=== PATIENT | female | born 1940 | race Caucasian/White ===

== ENCOUNTER 2016-06-26 19:47 | Inpatient (IN) | payer MEDICARE, OTHER, MEDICAID ==
[~2016-06-26] VITALS: Ht 167.6 cm; Wt 64.3 kg
[~2016-06-26 19:47] MED LIST: ALEN70TA30 PO; ATOR40TA68 PO; DULO60CA59 PO; GABA100C14 PO; HYDR-3498 PO; IBUP-1542 PO; LISI-313 PO; MIRT15TA5 PO; ONDA4TAB14 PO; PRED20TA PO; RANI150T5 PO; TIOT18CA INHALATION
[2016-06-26] MEDS ORDERED: ONDANSETRON 4 MG INJ IV STA (19:56)
[2016-06-26] MEDS ORDERED: morphine 4 MG/ML VIAL IV STA ×2 (19:56→22:06)
[2016-06-26] MEDS ORDERED: SOD CHLORIDE 0.9% 500 ML IV STA (19:56)
--- NOTE | 2016-06-26 20:31 | RADRPT ---
PROCEDURE: XR Chest. CLINICAL INDICATION: Patient experiencing Abdominal Pain. TECHNIQUE: Single frontal view of the chest was obtained. COMPARISON: 05/22/2016 FINDINGS: The cardiomediastinal silhouette is normal size. Pulmonary vasculature is within normal limits. Th ere is moderate aortic calcification. There is lung hyperinflation. No signs of pleural fluid or pneumothorax are seen. The osseous structures and soft tissues are unre markable. IMPRESSION: No evidence for active cardiopulmonary disease. Lung hyperinflation consistent with COPD. RPTAT: HBST .Luciano Ford MD, MD Date Time Electronically viewed and signed by .Luciano Ford MD, MD on 06/26/2016 20:31 .T/
[2016-06-26] MEDS ORDERED: LORA0.5T PO (20:49)
[2016-06-26] MEDS ORDERED: NAPR-688 PO (20:50)
[2016-06-26] MEDS ORDERED: GUAI100L25 PO (20:51)
[2016-06-26] MEDS ORDERED: ALBU2.5V3 NEB (20:52)
[2016-06-26] MEDS ORDERED: BUTA1CAP38 PO (20:54)
[2016-06-26] MEDS ORDERED: DOCU-103 PO (20:55)
[2016-06-26] MEDS ORDERED: HYDR-906 PO (20:56)
[2016-06-26] MEDS ORDERED: SYMB80120 INHALATION (20:57)
[2016-06-26] MEDS ORDERED: TIOT18CA INHALATION (20:57)
[2016-06-26] MEDS ORDERED: TEMA15CA PO (20:58)
[2016-06-26] MEDS ORDERED: ALBU18HF INHALATION (20:59)
[2016-06-26] MEDS ORDERED: TOPI50TA5 PO (20:59)
[2016-06-26] MEDS ORDERED: OXYB5TAB PO (21:03)
[2016-06-26] MEDS ORDERED: PRIM50TA38 PO (21:05)
[2016-06-26] MEDS ORDERED: PROP20TA4 PO (21:07)
[2016-06-26] MEDS ORDERED: BUDE0.256 HHN (21:08)
[2016-06-26] MEDS ORDERED: RANI150T5 PO (21:09)
[2016-06-26] MEDS ORDERED: GABA100C14 PO (21:10)
[2016-06-26] MEDS ORDERED: MIRT15TA5 PO (21:12)
[2016-06-26] MEDS ORDERED: LISI-313 PO (21:12)
[2016-06-26] MEDS ORDERED: ASPI-664 PO (21:13)
[2016-06-26] MEDS ORDERED: MULTI PO (21:13)
[2016-06-26] MEDS ORDERED: ATOR40TA68 PO (21:14)
[2016-06-26] MEDS ORDERED: CRAN450T7 PO (21:15)
[2016-06-26] MEDS ORDERED: DIVA250T12 PO (21:15)
[2016-06-26] MEDS ORDERED: DIVA500T15 PO (21:16)
[2016-06-26] MEDS ORDERED: CYAN250L PO (21:17)
[2016-06-26 22:00] LABS: BASOPHILS % 0.1 % (0.0-2.0); EOSINOPHILS % 0.3 % (0.0-7.0); HEMATOCRIT 48.9 % (37.0-47.0); HEMOGLOBIN 16.8 g/dl (12.0-16.0); LYMPHOCYTES # 1.6 10^3/ul (0.8-2.9); LYMPHOCYTES % 16.5 % (15.0-51.0); MEAN CORPUSCULAR HEMOGLOBIN 31.2 pg (29.0-33.0); MEAN CORPUSCULAR HGB CONC 34.4 g/dl (32.0-37.0); MEAN CORPUSCULAR VOLUME 90.7 fl (82.0-101.0); MEAN PLATELET VOLUME 9.3 fl (7.4-10.4); MONOCYTES % 10.8 % (0.0-11.0); NEUTROPHIL # 6.9 10^3/ul (1.6-7.5); NEUTROPHILS % 72.3 % (39.0-77.0); PLATELET COUNT 156 10^3/UL (140-440); RED BLOOD COUNT 5.39 10^6/ul (4.20-5.40); RED CELL DISTRIBUTION WIDTH 16.1 % (11.5-14.5); UNCORRECTED WBC 9.5 10^3/ul (4.8-10.8); WHITE BLOOD COUNT 9.5 10^3/ul (4.8-10.8)
[2016-06-26 22:01] LABS: INR 1.03; PROTIME 13.5 Sec (12.2-14.2); PT RATIO 1.1
[2016-06-26 22:02] LABS: CONDITION 1; LH ANALYZER COMMENTS 1; PARTIAL THROMBOPLASTIN TIME 33.2 Sec (25.0-35.0)
[2016-06-26 22:04] LABS: ALBUMIN 4.3 g/dl (3.3-4.9); POTASSIUM 3.4 mmol/L (3.5-5.1)
[2016-06-26] MEDS ORDERED: IOHEXOL 100 ML ONE (22:05)
[2016-06-26] MEDS ORDERED: SOD CHLORIDE 0.9% 100 ML ONE (22:05)
[2016-06-26] MEDS ORDERED: IOHEXOL 350MG/ML 50 ML BTL ONE (22:05)
[2016-06-26 22:07] LABS: ALBUMIN/GLOBULIN RATIO 1.19; BILIRUBIN,INDIRECT 0.3 mg/dl (0-1.1); BILIRUBIN,TOTAL 0.3 mg/dl (0.2-1.3); CALCIUM 10.2 mg/dl (8.4-10.2); CREATININE 0.71 mg/dl (0.44-1.00); TOTAL PROTEIN 7.9 g/dl (6.1-8.1)
--- NOTE | 2016-06-26 22:41 | ERA ---
ER Documentation Chief Complaint Date/Time DATE: 06/26/16 TIME: 22:33 Chief Complaint from [facility],mid and lower back pain s/p fall X2 days ago HPI 76-year-old female history of chronic back pain who presents the emergency room with mid and lower back pain status post fall. The patient had a fall 2 days ago. She was seen in the emergency department and had a negative CT of the cervical spine. However over the past several days she has noted worsening thoracolumbar back pain that is moderate to severe and worse with movement. She also notes significant hypertension but did not take her blood pressure medication this evening. She denies any chest pain or shortness of breath, no pleuritic pain. She denies any head trauma or loss of consciousness. ROS All systems reviewed and are negative except as per history of present illness. Medications Home Meds Reported Medications Cyanocobalamin* (Vitamin B-12* Key) 250 Mcg Lozenge, 250 MCG PO DAILY, LOZENGE 06/26/16 Divalproex Sodium* (Divalproex ER*) 500 Mg Tab.er.24h, 1000 MG PO QHS, #60 TAB.SA 06/26/16 Divalproex Sodium* (Divalproex ER*) 250 Mg Tab.er.24h, 250 MG PO QHS, #30 TAB.SA 06/26/16 Cranberry Fruit (CRANBERRY) 450 Mg Tablet, 450 MG PO DAILY, TAB 06/26/16 Atorvastatin* (Atorvastatin*) 40 Mg Tablet, 40 MG PO QHS, #30 TAB 06/26/16 Aspirin* (Aspirin* EC) 81 Mg Tablet.dr, 81 MG PO DAILY, TAB 06/26/16 Multivitamins* (Theragran*) 1 Tab Tab, 1 TAB PO DAILY, TAB 06/26/16 Mirtazapine* (Mirtazapine*) 15 Mg Tablet, 15 MG PO HS, TAB 06/26/16 Lisinopril* (Lisinopril*) 5 Mg Tablet, 5 MG PO BID, #30 TAB TAKE 2TAB QAM AND 1TAB QPM 06/26/16 Gabapentin* (Gabapentin*) 100 Mg Capsule, 200 MG PO QHS, #60 CAP 06/26/16 Ranitidine Hcl* (Ranitidine Hcl*) 150 Mg Tablet, 150 MG PO Q12, #60 TAB 06/26/16 Budesonide* (Pulmicort* (Neb)) 0.25 Mg/2 Ml Nebu, 0.25 MG HHN DIRECTED, EA 06/26/16 Propranolol Hcl* (Propranolol Hcl*) 20 Mg Tablet, 20 MG PO BID, TAB TAKE 1TAB QAM AND 2TAB QHS 06/26/16 Primidone* (Mysoline*) 50 Mg Tablet, 100 MG PO TID, TAB 06/26/16 Oxybutynin Chloride (Oxybutynin Chloride ER) 5 Mg Tab.er.24, 5 MG PO DAILY, TAB 06/26/16 Albuterol Sulfate* (Ventolin HFA*) 18 Gm Hfa.aer.ad, 2 PUFF INHALATION Q4H, #1 INHALER 06/26/16 Topiramate* (Topiramate*) 50 Mg Tablet, 100 MG PO QHS, TAB 06/26/16 Temazepam* (Temazepam*) 15 Mg Capsule, 15 MG PO HS Y for INSOMNIA, CAP 06/26/16 Budesonide-Formoterol Fumarate* (Symbicort*) 80-4.5 Inha, 2 PUFFS INHALATION BID , #1 EACH 06/26/16 Tiotropium [place]* (Spiriva*) 18 Mcg Cap.w.dev, 1 CAP INHALATION DAILY, #30 CAP 06/26/16 Hydrocodone/Acetaminophen ([place] 5-325 Tablet) 1 Each Tablet, 1 EACH PO BID, TAB 06/26/16 Docusate Sodium (Docusil) 100 Mg Capsule, 100 MG PO BID, #60 CAP 06/26/16 Uhpdybgurj-Illdtoajnikvb-Fjzfbcjx* (Fioricet*) 50-300-40 Mg Capsule, 1 CAP PO Q4H Y for MIGRAINES, CAP 06/26/16 Albuterol Sulfate* (Albuterol Sulfate* Neb) 0.083%-3 Ml Neb, 1.25 MG NEB Q4H, # 30 VIAL 06/26/16 Guaifenesin (Q-Tussin) 100 Mg/5 Ml Syrup, 100 MG PO TID Y for COUGH, ML 06/26/16 Naproxen* (Naproxen*) 500 Mg Tablet, 500 MG PO DAILY Y for PRN, TAB 06/26/16 Lorazepam* (Lorazepam*) 0.5 Mg Tablet, 0.5 MG PO BID Y for ANXIETY, TAB 06/26/16 Discontinued Reported Medications Tiotropium [place]* (Spiriva*) 18 Mcg Cap.w.dev, 1 CAP INHALATION DAILY, #30 CAP 02/12/16 Atorvastatin* (Atorvastatin*) 40 Mg Tablet, 40 MG PO QHS, #30 TAB 02/12/16 Alendronate Sodium* (Fosamax*) 70 Mg Tablet, 70 MG PO Q7D, #4 TAB 02/12/16 Ranitidine Hcl* (Ranitidine Hcl*) 150 Mg Tablet, 150 MG PO Q12, #60 TAB 02/12/16 Mirtazapine* (Mirtazapine*) 15 Mg Tablet, 15 MG PO HS, TAB 02/12/16 Lisinopril* (Lisinopril*) 5 Mg Tablet, 5 MG PO DAILY, #30 TAB 02/12/16 Duloxetine Hcl* (Duloxetine Hcl*) 60 Mg Capsule.dr, 60 MG PO DAILY, #30 CAP 02/12/16 Gabapentin* (Gabapentin*) 100 Mg Capsule, 100 MG PO BID, #90 CAP 02/12/16 Hydrocodone Bit-Acetaminophen* ([place]*) 5-325 Mg Tab, 1 TAB PO Q6H Y for PAIN LEVEL 6-10, TAB 02/12/16 Discontinued Scripts Ondansetron (Ondansetron Odt) 4 Mg Tab.rapdis, 4 MG PO Q6H Y for NAUSEA AND/OR VOMITING, #10 TAB Prov:YNES NICHOLSON DO 06/25/16 Ibuprofen* (Motrin*) 600 Mg Tab, 600 MG PO Q8, #30 TAB Prov:YNES NICHOLSON DO 06/25/16 Prednisone* (Prednisone*) 20 Mg Tab, 40 MG PO DAILY for 4 Days, TAB Prov:YADIRA BENNETT 05/22/16 Allergies Allergies: Coded Allergies: Penicillins (Verified Allergy, Unknown, 06/26/16) chicken derived (Verified Allergy, Unknown, 06/26/16) lamotrigine (Verified Allergy, Unknown, 06/26/16) propoxyphene (Verified Allergy, Unknown, 06/26/16) valsartan (Verified Allergy, Unknown, 06/26/16) PMhx/Soc History of Surgery: Yes (hysterectomy, bilat hip replacement) Anesthesia Reaction: No Hx Neurological Disorder: No Hx Respiratory Disorders: Yes (COPD) Hx Cardiac Disorders: Yes (HTN) Hx Psychiatric Problems: No Hx Miscellaneous Medical Probl: No Hx Alcohol Use: No Hx Substance Use: No Hx Tobacco Use: No FmHx Family History: No diabetes Physical Exam Vitals Vital Signs Date Time Temp Pulse Resp B/P Pulse Ox O2 Delivery O2 Flow Rate FiO2 06/26/16 19:55 98.2 94 18 176/104 95 Physical Exam General: Well developed, well nourished, slightly uncomfortable but no significant distress Head: Normocephalic, atraumatic. Eyes: Pupils equally reactive, EOM intact ENT: Moist mucous membranes Neck: Supple, no lymphadenopathy, No midline tenderness, deformities, step-offs to the cervical spine, full active and passive range of motion without midline pain. Respiratory: Lungs clear bilaterally, no distress Cardiovascular: RRR, no murmurs, rubs, or gallops Abdominal: Soft, non-tender, non-distended, no peritoneal signs, no pulsatile mass : Deferred MSK: Mild diffuse soft tissue tenderness to the midline and paraspinal soft tissues of the thoracolumbar spine. No bony abnormalities to the extremities. Neurologic: Alert and oriented, moving all extremities, normal speech, no focal weakness, no cerebellar signs Skin: No rash Psych: Normal mood Result Diagram: 06/26/16214406/26/162144 Results 24 hrs Laboratory Tests Test 06/26/16 21:45 Activated Partial Thromboplast Time 33.2Sec Alanine Aminotransferase (ALT/SGPT) 30IU/L Albumin 4.3g/dl Albumin/Globulin Ratio 1.19 Alkaline Phosphatase 78IU/L Anion Gap 17 Aspartate Amino Transf (AST/SGOT) 25IU/L Basophils # 0.010^3/ul Basophils % 0.1% Blood Morphology Comment Blood Urea Nitrogen 13mg/dl Calcium Level 10.2mg/dl Carbon Dioxide Level 28mmol/L Chloride Level 94mmol/L Creatinine 0.71mg/dl Direct Bilirubin 0.00mg/dl Eosinophils # 0.010^3/ul Eosinophils % 0.3% Globulin 3.60g/dl Glucose Level 117mg/dl Hematocrit 48.9% Hemoglobin 16.8g/dl INR International Normalized Ratio 1.03 Indirect Bilirubin 0.3mg/dl Lipase 20U/L Lymphocytes # 1.610^3/ul Lymphocytes % 16.5% Mean Corpuscular Hemoglobin 31.2pg Mean Corpuscular Hemoglobin Concent 34.4g/dl Mean Corpuscular Volume 90.7fl Mean Platelet Volume 9.3fl Monocytes # 1.010^3/ul Monocytes % 10.8% Neutrophils # 6.910^3/ul Neutrophils % 72.3% Nucleated Red Blood Cells # 0.010^3/ul Nucleated Red Blood Cells % 0.0/100WBC Platelet Count 77536^3/UL Potassium Level 3.4mmol/L Prothrombin Time 13.5Sec Prothrombin Time Ratio 1.1 Red Blood Count 5.3910^6/ul Red Cell Distribution Width 16.1% Sodium Level 136mmol/L Total Bilirubin 0.3mg/dl Total Protein 7.9g/dl White Blood Count 9.510^3/ul Current Medications Medications (Trade) Dose Ordered Sig/Telma Route PRN Reason Start Time Stop Time Status Last Admin Dose Admin Sodium Chloride (NS) 500 ml @ 500 mls/hr Q1H STAT IV 06/26/16 19:56 06/26/16 20:55 DC 06/26/16 22:21 Morphine Sulfate (morphine) 4 mg ONCE STAT IV 06/26/16 19:56 06/26/16 19:59 DC 06/26/16 20:46 Ondansetron HCl (Zofran Inj) 4 mg ONCE STAT IV 06/26/16 19:56 06/26/16 19:59 DC 06/26/16 22:21 IV Flush 10 ml 10 ml STK-MED ONCE .ROUTE 06/26/16 22:05 06/26/16 22:06 DC 06/26/16 23:05 Sodium Chloride 100 ml @ ud STK-MED ONCE .ROUTE 06/26/16 22:05 06/26/16 22:06 DC 06/26/16 23:05 Iohexol (Omnipaque) 100 ml @ ud STK-MED ONCE .ROUTE 06/26/16 22:05 06/26/16 22:06 DC 06/26/16 23:05 Iohexol (Omnipaque 350mg/ ml) 50 ml STK-MED ONCE .ROUTE 06/26/16 22:05 06/26/16 22:06 DC 06/26/16 23:05 Morphine Sulfate (morphine) 4 mg ONCE STAT IV 06/26/16 22:06 06/26/16 22:07 DC 06/26/16 22:20 Procedures/MDM EKG, MONITORS, & DIAGNOSTIC IMAGING: EKG: I reviewed and interpreted a 12-lead EKG. Rhythm: Normal sinus rhythm Ectopy: None Intervals: No abnormalities ST segments: No elevations or depressions T waves: No contiguous inversions Chest x-ray: I reviewed and interpreted a 1 view of the chest Mediastinum: No enlargement Cardiac silhouette: No cardiomegaly Airspace: Clear lung macedo bilaterally without evidence of pneumothorax Bones: No evidence of fracture CT thoracolumbar spine: PENDING CTA abdomen and pelvis: PENDING CT brain: PENDING PROCEDURES: Peripheral IV Insertion: Indication: Difficult IV access Location: Right deep brachial Attempts: 3 Angiocath-type: 18-gauge long The patient was consented prior to procedure and states understanding of risks, benefits, alternatives. Verbal consent was provided Sterile procedure was used to insert a peripheral IV. Indication, location and Angiocath-type are noted above. Ultrasound guidance was used to assist in the insertion of the Angiocath. Return of dark nonpulsatile blood was obtained, normal saline flushed through the Angiocath which was then secured to the skin. The patient tolerated the procedure well without complications. Emergency Bedside Ultrasound: The patient was verbally consented prior to procedure and understands the risks , benefits, and alternatives. The patient is agreeable to procedure and has given verbal consent. Indication: Peripheral IV insertion Probe Type: Linear Findings: Dynamic ultrasound utilized with compression technique with both linear and horizontal views. LAB INTERPRETATION: No significant leukocytosis MEDICAL DECISION MAKING: The patient presents with back pain that is most likely related to a fall. However, the patient does have significant hypertension, reported to be in the 200s in the 170s. The patient did miss her blood pressure medication this evening and does have some pain which could play a role in her elevated blood pressure. However, the patient is elderly with elevated blood pressure and back pain which raises the concern for possible vascular emergency. CT imaging of the thoracolumbar spine as well as CTA is appropriate. The patient also has a very transient episode with the paramedics while waiting for a bed. The paramedics state that they were having a conversation with her and she suddenly stopped talking and became confused, this lasted approximately 30 seconds with spontaneous resolution. The patient is now appropriate and conversive. The patient does not recall this event. Unclear etiology. CT imaging of the brain would be appropriate. Telemetry monitoring for possible arrhythmias also appropriate. The patient will benefit from inpatient hospitalization to evaluate for possible TIA, consider absence seizure versus sundowning. ER COURSE: The patient continues to be well-appearing in the emergency room. CTs pending at time of signout. patient endorsed to Dr Bennett for results and inpatient hospitalization I kept the patient and/or family informed of laboratory and diagnostic imaging results throughout the emergency room course. DISPOSITION PLAN: Telemetry admission for altered mental status, back pain CONSULTATION: Accepting care team and consultations: I discussed the current laboratory data, diagnostic imaging and emergency care provided. Admitting team: PENDING Admitting team indication: Insurance directed Departure Diagnosis: Primary Impression: Thoracolumbar back pain Additional Impressions: Hypertensive urgency Altered mental status Qualified Code: R41.82 - Altered mental status, unspecified altered mental status type Condition: Stable BETZAIDA DE LA GARZA MD Jun 26, 2016 22:41
--- NOTE | 2016-06-26 23:32 | RADRPT ---
PROCEDURE: CT BRAIN WITHOUT CONTRAST CLINICAL INDICATION: 76-year-old female with altered mental status. TECHNIQUE: The study was performed utilizing [employer] VCT 64-slice CT scanner. Direct axial sections were obtained from the foramen magnum to the vertex without the use of intravenous contrast material. Sagittal and coronal reformations were obtained. The images were viewed on a PACS workst ation. CTD/vol = 45.0 mGy; Total Exam DLP = 720.2 mGy-cm. COMPARISON: CT brain May 22, 2016. FINDINGS: There is whue-sp-sbhpqahu degree of diffuse cortical and central atrophy with compensatory ventricul ar enlargement. There is marked prominence of the cerebellar folia bilaterally suggestive of moderat e-to-severe cerebellar atrophy similar appearance to the patient's prior study.. There is no evidenc e for mass effect or midline shift. There are periventricular and deep white matter areas of decrea sed density consistent with microangiopathic ischemic changes. There is encephalomalacia identified within the left occipital and mesial posterior temporal lobe consistent with a prior left posterior cerebral artery distribution infarct as previously visualized and without significant interval webb e. There is no evidence for acute intra or extra-axial blood. Calcifications are seen within the intracranial carotid arteries bilaterally. The bony calvarium is intact. There is minimal mucosal th ickening within the ethmoid air cells bilaterally. No air-fluid levels are noted. The mastoid air cells are without significant soft tissue. IMPRESSION: 1. The intracranial contents are without significant interval change compared to the patient's prio r study from May 22, 2016. 2. Qnuz-wz-rufiyjup diffuse supratentorial atrophy and with more severe cerebellar atrophy. 3. Microangiopathic ischemic changes. 4. 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 5. Vascular calcifications. 6. Minimal mucosal thickening ethmoid air cells. .Yimi Guadarrama MD, MD Date Time Electronically viewed and signed by .Yimi Guadarrama MD, MD on 06/26/2016 23:31 .M/
--- NOTE | 2016-06-27 00:01 | RADRPT ---
PROCEDURE: CT LUMBAR SPINE WITHOUT CONTRAST CLINICAL INDICATION: 76-year-old female with back pain following trauma. TECHNIQUE: The study was performed utilizing a GE [employer] VCT CT scanner. Direct axial section s were obtained through the lumbar spine. Coronal and sagittal re-formations were obtained. The im ages were viewed on a PACS workstation. CTD/vol = 12.3 mGy; Total Exam DLP = 319.4 mGy-cm. COMPARISON: CT thoracic spine obtained concurrently. FINDINGS: There is an old severe compression fracture of the L1 vertebral body with a sclerotic appearance and vertebra plana appearance with approximately 90% loss of height centrally. There is retropulsion o f the posterosuperior body approximately 7 mm. This is narrowing the anteroposterior dimension of t he spinal canal to approximately 8 mm. At L1-2 there is mild diffuse disk bulge resulting in mild bilateral articular recess stenosis. Ther e is minimal central spinal stenosis. There is a compression fracture of the L2 vertebral body with approximately 50% loss of height. The re is evidence for prior kyphoplasty with dense methylmethacrylate visualized. At L2-3 there is mild diffuse disk bulge. There is mild bilateral facet arthropathy. This is resul ting in rins-jz-nrfvmwpy bilateral subarticular recess stenosis. There is lghu-si-jsthbmkw central spinal stenosis. There is an old compression fracture the superior L3 vertebral body with approximately 20% loss of h eight. At L3-4 the disk space has a normal height. There is minimal diffuse disk bulge. There is mild luis a ateral facet arthropathy. There is hypertrophy of the ligamentum flavum. This is resulting in mild bilateral subarticular recess stenosis and ukxw-hl-hzlwujgc central spinal stenosis. At L4-5 there is a vacuum disk present with marked disk space narrowing. There is anterolisthesis o f approximately 25%. There is marked bilateral facet arthropathy. There is diffuse disk bulge. The re is hypertrophy of the ligamentum flavum. This is resulting in sptljpeo-zu-uewlqd bilateral forami nal stenosis and zfiszcxz-nj-xxwjef central spinal stenosis. At L5-S1 there is a vacuum disk present. There is moderate disk space narrowing. There is diffuse disk bulge and mild bilateral facet arthropathy. This is resulting in moderate bilateral foraminal stenosis. There is no significant central spinal stenosis. Mild degenerative changes are seen within the sacroiliac joints. Marked diffuse osteopenia is identified. IMPRESSION: 1. Old severe L1 compression fracture (90%) with posterosuperior retropulsion resulting in moderate central spinal stenosis. 2. Old compression fracture L2 vertebral body (50%) with prior kyphoplasty. 3. Old superior L3 compression fracture (20%). 4. Multilevel discogenic and degenerative changes most severe at L4-5. 5. At L3-4 there is minimal diffuse disk bulge, mild facet arthropathy hypertrophy of the ligamentu m flavum resulting in mild bilateral subarticular recess stenosis and pbas-os-eoryzrkq central spina l stenosis. 6. At L4-5 there is degenerative spondylolisthesis (25%), discogenic disease, facet arthropathy hyp ertrophy of the ligamentum flavum resulting in zknixrxn-pk-reqfwx bilateral foraminal stenosis and m rrbfeng-gw-dmkqkb central spinal stenosis. 7. At L5-S1 there is a vacuum disk with discogenic disease and facet arthropathy resulting in moder ate bilateral foraminal stenosis. 8. Marked diffuse osteopenia. .Yimi Guadarrama MD, Date Time Electronically viewed and signed by .Yimi Guadarrama MD, on 06/27/2016 00:00 .M/
--- NOTE | 2016-06-27 00:11 | RADRPT ---
PROCEDURE: CTA ABDOMEN/PELVIS CLINICAL INDICATION: 76-year-old female with severe back pain and hypertension. TECHNIQUE: The study was performed utilizing a GE [employer] VCT 64-slice CT scanner. Direct axia l sections were obtained through the abdomen and pelvis with the use of 115 cc of Omnipaque 350 lucia onic intravenous contrast material. Sagittal and coronal reformations were obtained. Maximal intensi ty projection and surface shaded display reformations were obtained. The images were reviewed on a PACS workstation. CTD/vol = 28.5 mGy; Total Exam DLP = 614.2 mGy-cm. COMPARISON: CT thoracic and lumbar spine obtained concurrently. FINDINGS: Cardiomegaly is noted. There is minimal bibasilar subsegmental atelectasis. There is no evidence fo r significant pleural effusion. The liver has a normal size and contour without focal areas of abno rmal density or contrast enhancement. No intrahepatic nor extrahepatic biliary ductal dilatation is seen. The gallbladder is distended but without evidence for calcified stones, significant wall thick ening or pericholecystic fluid.. The pancreas is without areas of abnormal attenuation or contrast e nhancement. This spleen is identified and has a normal size without abnormal density or contrast en hancement. The adrenal glands are unremarkable. The kidneys are functional bilaterally. There is a c yst identified within the lower pole of the left kidney measuring approximately 1.3 x 1.3 x 1.3 cm. No hydroureteronephrosis nor nephroureterolithiasis is evident. The urinary bladder is distended wit h urine. There is moderate retained stool within the ascending and transverse colon without gross bowel obstruction. The periappendiceal region is without inflammatory changes. There is no signifi cant pelvic free fluid. There is no significant free fluid. Degenerative changes are seen throughout the spine with multiple compression fractures better evaluated on the CT of the lumbar spine obtain ed concurrently. Bilateral hip arthroplasties are present. There are old healed fracture deformitie s involving the right superior/inferior pubic rami with exuberant callus formation. Marked diffuse osteopenia is present. There is diffuse ectatic calcific atherosclerotic disease throughout the aortoiliac vessels with mil d focal mid aortic infrarenal aneurysmal dilatation extending for a length of approximately 3.0 cm w ith maximal transverse dimension of approximately 2.8 x 3.0 cm. There is no evidence for dissection. The celiac, superior mesenteric and inferior mesenteric arteries are patent. The renal arteries ar e patent bilaterally with mild stenosis involving the proximal right renal artery. IMPRESSION: 1. Cardiomegaly. 2. Minimal bibasilar subsegmental atelectasis. 3. Left lower pole renal cyst. 4. Moderate retained stool within the proximal colon without gross bowel obstruction. 5. Degenerative changes throughout the spine with multiple compression fractures better evaluated o n a CT of the lumbar spine which was obtained concurrently. Please see the dictation. 6. Bilateral hip arthroplasties. 7. Old right superior/inferior pubic rami fracture deformities. 8. Marked diffuse osteopenia. 9. 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 .Yimi Guadarrama MD, Date Time Electronically viewed and signed by .Yimi Guadarrama MD, on 06/27/2016 00:10 .M/
--- NOTE | 2016-06-27 00:16 | RADRPT ---
PROCEDURE: CT THORACIC SPINE WITHOUT CONTRAST CLINICAL INDICATION: 76-year-old female with trauma and back pain. TECHNIQUE: The study was performed utilizing a GE SuperbT 64-slice CT scanner. Direct axia l sections were obtained through the lumbar spine. Coronal and sagittal re-formations were obtained . The images were viewed on a PACS workstation. CTD/vol = 16.1 mGy; Total Exam DLP = 556.6 mGy-cm. COMPARISON: CT cervical spine June 25, 2016. FINDINGS: There has been interval development of a compression fracture of the superior T1 vertebral body with approximately 30% loss of height. There is no significant retropulsion. At T1-2 there is anterolisthesis of approximately 15%. There is no significant central or foraminal stenosis. This is without significant interval change. There is an old sclerotic severe compression fracture of the T2 vertebral body with approximately 80 % loss of height centrally. There is mild posteroinferior retropulsion of approximately 3 mm. There is an old compression fracture of the superior T7 vertebral body with approximately 40% loss o f height without significant retropulsion. There is a severe compression fracture of the T10 vertebral body with approximately 80% loss of heig ht which has a sclerotic appearance however there is a cleavage plane most likely representing an ac joan on chronic process. There is marked right posteroinferior retropulsion of approximately 7 mm. This is resulting in narrowing of the anteroposterior dimension of the spinal canal to approximately 7 mm. At T10-11 there is srso-ln-qstxtrli bilateral foraminal stenosis. There is a mild compression fracture of the superior T12 vertebral body with approximately 15% loss of height which does not appear to be acute. There is no significant retropulsion. There is an old severe compression fracture of the L1 vertebral body with a sclerotic appearance and vertebra plana appearance with approximately 90% loss of height centrally. There is retropulsion o f the posterosuperior body approximately 7 mm. This is narrowing the anteroposterior dimension of t he spinal canal to approximately 8 mm. IMPRESSION: 1. Interval development of acute superior T1 compression fracture with approximately 30% loss of he ight without significant retropulsion. 2. Old sclerotic severe compression fracture T2 vertebral body (80%). 3. Old superior T7 vertebral body compression fracture (40%). 4. Severe T10 compression fracture (80%) with a sclerotic appearance consistent with a prior fractu re however there is a cleavage plane present and therefore representing acute on chronic process. N oted is marked right posteroinferior retropulsion of 7 mm causing moderate spinal stenosis with narr owing of the canal to approximately 7 mm. 5. Probable old superior T12 vertebral body compression fracture (50%). 6. Old severe L1 compression fracture (90%) with posterosuperior retropulsion resulting in moderate central spinal stenosis. .Yimi Guadarrama MD, MD Date Time Electronically viewed and signed by .Yimi Guadarrama MD, MD on 06/27/2016 00:15 .M/
[2016-06-27] MEDS ORDERED: morphine 4 MG/ML VIAL IV STA (04:53)
[2016-06-27] MEDS: HYDROmorphONE 1 MG/ML SYG IV STA ×2 (08:18→11:37)
[2016-06-27] MEDS ORDERED: ONDANSETRON 4 MG INJ IV STA (08:47)
[2016-06-27 09:48] LABS: CK-MB 2.41 ng/ml (0.0-2.4)
[2016-06-27 09:55] LABS: TROPONIN-I 0.145 ng/ml (0.00-0.12)
[2016-06-27] MEDS ORDERED: SOD CHLORIDE 0.9% 1,000 ML IV STA (10:10)
[2016-06-27] MEDS ORDERED: SOD CHLORIDE 0.9% 500 ML IV STA (15:15)
[2016-06-27 17:27] VITALS: TEMP 98
[2016-06-27 18:00] VITALS: PULSE 90
[2016-06-27 18:08] VITALS: BP 171/82; PULSE 87; RESP 16
[2016-06-27 18:09] VITALS: Ht 167.6 cm; Wt 64.3 kg
[2016-06-27] MEDS ORDERED: DOCUSATE SODIUM 100 MG CAP PO PRN (18:30)
[2016-06-27] MEDS ORDERED: ACETAMINOPHEN 325 MG TAB PO PRN (18:30)
[2016-06-27] MEDS ORDERED: NACL 0.9% 3 ML SYG IV SCH (18:30)
[2016-06-27] MEDS ORDERED: NITROGLYCERIN (SL) 0.4 MG TAB SL PRN (18:30)
[2016-06-27] MEDS ORDERED: GUAIFENESIN 20 MG/ML 5ML CUP PO PRN (18:30)
[2016-06-27] MEDS ORDERED: LORAZEPAM 2 MG INJ IV PRN (18:30)
[2016-06-27] MEDS: ALBUTEROL 0.083% (NEB) 2.5 MG/3 ML AMP NEB SCH ×2 (18:30→20:33)
[2016-06-27] MEDS ORDERED: ONDANSETRON 4 MG INJ IV PRN (18:30)
[2016-06-27] MEDS: morphine 2 MG INJ IV PRN (19:04)
[2016-06-27] MEDS ORDERED: HEPARIN 25000 UNITS/250 ML 250 ML IV SCH (19:30)
[2016-06-27] MEDS ORDERED: HEPARIN 1000 UNITS/ML 10 ML INJ IV PRN (19:30)
[2016-06-27] MEDS ORDERED: HEPARIN 1000 UNITS/ML 10 ML INJ IV ONE (19:30)
[2016-06-27 19:42] LABS: BASOPHILS % 0.5 % (0.0-2.0); EOSINOPHILS # 0.1 10^3/ul (0.0-0.5); EOSINOPHILS % 1.6 % (0.0-7.0); HEMOGLOBIN 15.1 g/dl (12.0-16.0); LYMPHOCYTES % 10.9 % (15.0-51.0); MEAN CORPUSCULAR HEMOGLOBIN 30.5 pg (29.0-33.0); MEAN CORPUSCULAR HGB CONC 32.8 g/dl (32.0-37.0); MEAN CORPUSCULAR VOLUME 93.1 fl (82.0-101.0); MEAN PLATELET VOLUME 9.2 fl (7.4-10.4); MONOCYTE # 1.3 10^3/ul (0.3-0.9); MONOCYTES % 13.4 % (0.0-11.0); NEUTROPHILS % 73.6 % (39.0-77.0); PLATELET COUNT 159 10^3/UL (140-440); RED BLOOD COUNT 4.94 10^6/ul (4.20-5.40); RED CELL DISTRIBUTION WIDTH 16.7 % (11.5-14.5); UNCORRECTED WBC 9.5 10^3/ul (4.8-10.8); WHITE BLOOD COUNT 9.5 10^3/ul (4.8-10.8)
[2016-06-27 19:48] LABS: CONDITION 1; LH ANALYZER COMMENTS 1
[2016-06-27 19:50] LABS: CHOL/HDL RATIO 3.4 RATIO; MAGNESIUM 1.6 mg/dl (1.7-2.5)
[2016-06-27 19:53] VITALS: BP 123/69; RESP 18
[2016-06-27] MEDS ORDERED: POTASSIUM CHLORIDE (SR) 20 MEQ TAB PO STA (19:54)
[2016-06-27 20:00] LABS: CK-MB 4.19 ng/ml (0.0-2.4)
[2016-06-27] MEDS ORDERED: LIDOCAINE 1% (MDV) 20 ML INJ SC ONE (20:00)
[2016-06-27 20:03] LABS: TROPONIN-I 0.086 ng/ml (0.00-0.12)
[2016-06-27 20:10] VITALS: PULSE 95
[2016-06-27 20:21] LABS: THYROID STIMULATING HORMONE 3.53 MIU/L (0.465-4.680)
[2016-06-27 20:47] LABS: INR 0.98; PARTIAL THROMBOPLASTIN TIME 30.9 Sec (25.0-35.0)
[2016-06-27] MEDS ORDERED: MAGNESIUM SULFATE 2 GM/50 ML 50 ML IVPB ONE (21:30)
[2016-06-27] MEDS ORDERED: morphine 2 MG INJ IV ONE (22:00)
[2016-06-27] MEDS ORDERED: HEPARIN 5,000 UNIT/0.5 ML SYG SC SCH (22:00)
[2016-06-27] MEDS: ATORVASTATIN 40 MG TAB PO SCH (22:10)
[2016-06-27] MEDS: ASPIRIN (EC) 81 MG TAB PO SCH (22:11)
[2016-06-27] MEDS: PRIMIDONE 50 MG TAB PO SCH (22:11)
[2016-06-27] MEDS: RANITIDINE 150 MG TAB PO SCH (22:11)
[2016-06-27] MEDS: MIRTAZAPINE 15 MG TAB PO SCH (22:11)
[2016-06-27] MEDS: DIVALPROEX (ER) 500 MG TAB PO SCH (22:11)
[2016-06-27] MEDS: DIVALPROEX (ER) 250 MG TAB PO SCH (22:12)
[2016-06-27] MEDS: GABAPENTIN 100 MG CAP PO SCH (22:12)
[2016-06-27] MEDS: TOPIRAMATE 100 MG TAB PO SCH (22:13)
[2016-06-27] MEDS: PROPRANOLOL 20 MG TAB PO SCH (22:24)
[2016-06-27] MEDS: ENOXAPARIN 40 MG/0.4 ML SYG SC SCH (22:47)
[2016-06-27] MEDS: SALMETEROL/FLUTICASONE 100/50 INHA INH SCH (23:30)
[2016-06-27] MEDS: LISINOPRIL 5 MG TAB PO SCH (23:30)
[2016-06-28] VITALS (12 sets, daily range): BP systolic 114–142; BP diastolic 59–78; PULSE 62–83; RESP 18–19
[2016-06-28] MEDS: FAMOTIDINE 20 MG INJ IV SCH ×2 (01:01→09:20)
[2016-06-28] MEDS: ALBUTEROL 0.083% (NEB) 2.5 MG/3 ML AMP NEB SCH ×4 (01:20→16:00)
[2016-06-28 01:50] LABS: CK-MB 3.49 ng/ml (0.0-2.4)
[2016-06-28 01:53] LABS: TROPONIN-I 0.091 ng/ml (0.00-0.12)
--- NOTE | 2016-06-28 06:25 | HP ---
DATE OF ADMISSION: 06/27/2016 PRESENTING COMPLAINT: Back pain. HISTORY OF PRESENT ILLNESS: Please note, that the patient was initially seen in the emergency room on 06/26/2016 at about 9:30 p.m.; however, I didn't find out about this patient until today, 016 at about 7:15 p.m. There is some question about the patient being endorsed to me for admission yesterday; however, I received no such endorsement, and was just notified about the patient's presen ce in the hospital by my partner, Dr. Marley, this evening. Apparently, this is a 76-year-old fema kathleen who resides at [facility], who slipped and fell in the shower 2 days ago, 06/25/2016. She was brought to the emergency room here, and evaluated by our emergency room physicians, and at that time they had determined that she had just obtained a back contusion, and she has an age-indete rminate T2 compression fracture, with 75% loss of anterior vertebral body height with no retropulsio n, and she was sent back to the [facility] with good pain management regimen. However, the patien t reports that she still did not feel well, and she continued to have generalized pain, so she was s ent back to the ER yesterday. In the ER, she was fully assessed and had multiple imaging studies to include a thoracic spine CT scan that now shows interval development of an acute T1 compression fra cture, old T2, T7, T10, and T12, as well as L1 compression fractures that are in varying degrees of severity, but more importantly, she was found to have elevated troponins, and she is being admitted for further intervention and care. At this time, the patient is very anxious and tearful, telling m e she hurts all over. She tells me she is able to walk usually with a walker, but she has had multi ple falls. She denies chest pain though, denies shortness of breath, denies abdominal pain, denies blood in stool or in urine. PAST MEDICAL HISTORY: Positive for: 1. Multiple falls. 2. Chronic osteoarthritis. 3. Previous spinal fractures. 4. Chronic obstructive pulmonary disease. 5. Previous stroke, with left-sided weakness. 6. High blood pressure. 7. Depression. 8. Seizures. 9. Dyslipidemia. PAST SURGICAL HISTORY: Includes: 1. Hysterectomy. 2. Bilateral hip replacement. ALLERGIES: SHE HAS ALLERGY TO PENICILLIN, CHICKEN, , LAMOTRIGINE, PROPOXYPHENE, AND VALSARTAN. HOME MEDICATIONS: These were reviewed and reconciled. Please review nursing notes for details. Of note, regarding her medications, the patient is on multiple, multiple medications that include medi cations that could make her a fall risk, including Fioricet as needed for headaches, primidone, topi ramate, mirtazapine, gabapentin, and temazepam. FAMILY HISTORY: Noncontributory. SOCIAL HISTORY: Patient denies tobacco, alcohol, or illicit drug use. 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 PHYSICAL EXAMINATION: VITAL SIGNS: Temperature 98.4, pulse 97, respirations 18, blood pressure 123/69, saturations 94% on oxygen via nasal cannula at 1 liter/minute. GENERAL: The patient is somewhat obese, very anxious, but she is alert and oriented, able to answer questions appropriately. HEENT: Head is normocephalic. There is no evidence of trauma. Equal and reactive pupils. Her muc ous membranes were quite dry. NECK: Supple and nontender. BACK: Evaluation of her back does reveal multiple bruises and contusions at different levels of her spine. CHEST: Clear to auscultation with reduced air entry in the bases, as well as shallow breath sounds. CARDIOVASCULAR: S1 and S2, without added sounds or murmurs, regular rhythm. ABDOMEN: Obese, soft, nontender, with normoactive bowel sounds. EXTREMITIES: With trace nonpitting edema of both feet. NEUROLOGIC: The patient is able to move all 4 extremities without deficits. PSYCHIATRIC: She was anxious. LABORATORY VALUES: Her CBC was normal. Her chemistry was concerning for hypokalemia of 3.4, hypoma gnesemia of 1.6, an elevated troponin as mentioned earlier of 0.468, but on the second draw it impro gita to 0.145. Her total cholesterol was still mildly elevated at 206. Her LFTs were normal, howeve r, as was her coag profile. IMAGING STUDIES: The patient had multiple imaging studies, and they are summarized as below: 1. CT scan of brain showed rqdi-dg-[id number] diffuse supratentorial atrophy with more severe cerebel lar atrophy. It also showed an old posterior cerebral artery distribution infarct, as well as vascu lar calcifications, and minimal mucosal thickening of ethmoid air cells. 2. She had abdominal angiography of the abdomen and pelvis with IV contrast. It showed the followin g: Cardiomegaly, bibasilar subsegmental atelectasis, constipation without bowel obstruction, degene rative changes throughout the spine, with multiple compression fractures; better evaluated on CT of the spine, bilateral hip arthroplasties, old right superior/inferior fracture deformities, dif fuse osteopenia, and atherosclerotic disease, with a mild focal medial abdominal aortic aneurysmal d ilatation with a maximal dimension of 3.0, without evidence of dissection. 3. She also had a chest x-ray done 06/26/2016, and it showed no active cardiopulmonary disease and has lung hyperinflation consistent with chronic COPD. 4. CT of the lumber spine had the multiple factors summarized in the HPI. 5. CT of the thoracic spine, as well, had multiple fractures. 6. CT of the cervical spine did show severe left neural foraminal narrowing at C6 through C7. 7. Her EKG when she first came into the emergency room was reviewed, and there were no concerns for , based on my assessment. ASSESSMENT: A 76-year-old unfortunate female with history of multiple falls and severe diffuse oste openia with the followin. Acute non-ST elevation myocardial infarction with atypical symptoms, as the patient denies chest pain or shortness of breath. 2. Multiple falls causing #3. 3. Multiple fractures with varying ages and severity, as well as compression height, in the lumbar and thoracic spine. 4. Severe osteoarthritis and diffuse osteopenia contributing to #3. 5. Chronic obstructive pulmonary disease without exacerbation. 6. Chronic seizures. 7. Dyslipidemia. 8. Chronic depression. 9. Hypokalemia. 10. Hypomagnesemia. 11. Dyslipidemia. 12. Small 3 cm mild midabdominal aortic aneurysm that was incidentally found on CT. 13. Constipation. DISPOSITION: The patient was admitted to telemetry floor for cardiac optimization and will need car diology consultation. She has been started on a heparin drip in the interim. However, the patient is a very hard stick, and as such, I have discussed the need for PICC line with the patient, and she has consented to the procedure. Will be obtaining a cardiology consultation with Dr. Dominick Valiente i, and to follow his recommendations with regard to how to proceed regarding her cardiac status. Me anwhile, we will make sure she continues on aspirin, NOREEN inhibitor, beta-tracy, if she can tolerat e that because of COPD, as well as a statin, and go from there. 2. She is going to need neurosurgical or orthopedic consultation because of her multiple spinal fra ctures. She will probably need some kind of brace, as well as the rehabilitation. The patient may need to be started on bisphosphonate therapy, as well as calcium and vitamin D supplementation. Sup portive care will also include pain control, antiemetics, and antibiotics if indicated. 3. She will be put on a calorie-controlled diet. 4. Further interventions will depend on how she responds to above measures and the consultants' rec ommendations. For further information and clarification, please review the patient's chart and my orders. Dictated By: OPAL SIMPSON MD, BA/SUE Conf#: [id number] DID#: [id number]
[2016-06-28 07:59] LABS: BASOPHILS % 0.2 % (0.0-2.0); EOSINOPHILS # 0.1 10^3/ul (0.0-0.5); EOSINOPHILS % 1.4 % (0.0-7.0); HEMATOCRIT 38.8 % (37.0-47.0); HEMOGLOBIN 13.1 g/dl (12.0-16.0); LYMPHOCYTES # 1.9 10^3/ul (0.8-2.9); LYMPHOCYTES % 23.7 % (15.0-51.0); MEAN CORPUSCULAR HEMOGLOBIN 31.3 pg (29.0-33.0); MEAN CORPUSCULAR HGB CONC 33.8 g/dl (32.0-37.0); MEAN CORPUSCULAR VOLUME 92.7 fl (82.0-101.0); MEAN PLATELET VOLUME 9.3 fl (7.4-10.4); MONOCYTE # 1.4 10^3/ul (0.3-0.9); MONOCYTES % 17.7 % (0.0-11.0); NEUTROPHIL # 4.6 10^3/ul (1.6-7.5); PLATELET COUNT 142 10^3/UL (140-440); RED BLOOD COUNT 4.18 10^6/ul (4.20-5.40); RED CELL DISTRIBUTION WIDTH 16.3 % (11.5-14.5); UNCORRECTED WBC 8.1 10^3/ul (4.8-10.8); WHITE BLOOD COUNT 8.1 10^3/ul (4.8-10.8)
[2016-06-28 08:01] LABS: CONDITION 1; LH ANALYZER COMMENTS 1
[2016-06-28 08:08] LABS: POTASSIUM 4.2 mmol/L (3.5-5.1)
[2016-06-28 08:11] LABS: CREATININE 0.86 mg/dl (0.44-1.00)
[2016-06-28] MEDS ORDERED: NON-FORMULARY/PATIENT OWN MED (Cranberry Fruit (Cranberry) 450 MG) PO SCH (09:00)
[2016-06-28] MEDS: ENOXAPARIN 40 MG/0.4 ML SYG SC SCH (09:00)
[2016-06-28] MEDS: TIOTROPIUM 18 MCG CAPSULE INHA DEV INH SCH (09:20)
[2016-06-28] MEDS: PROPRANOLOL 20 MG TAB PO SCH ×2 (09:21→20:13)
[2016-06-28] MEDS: OXYBUTYNIN (XL) 5 MG TAB PO SCH (09:21)
[2016-06-28] MEDS: LISINOPRIL 5 MG TAB PO SCH (09:21)
[2016-06-28] MEDS: ASPIRIN (EC) 81 MG TAB PO SCH (09:22)
[2016-06-28] MEDS: PRIMIDONE 50 MG TAB PO SCH ×3 (09:22→20:13)
[2016-06-28] MEDS: CYANOCOBALAMIN 500 MCG TAB PO SCH (09:23)
[2016-06-28] MEDS: MULTIVITAMINS THERAPEUTIC TAB PO SCH (09:23)
[2016-06-28] MEDS: RANITIDINE 150 MG TAB PO SCH ×2 (09:23→20:14)
[2016-06-28] MEDS: SALMETEROL/FLUTICASONE 100/50 INHA INH SCH ×2 (09:25→20:12)
[2016-06-28] MEDS: morphine 2 MG INJ IV PRN ×4 (09:55→23:54)
--- NOTE | 2016-06-28 10:43 | PN ---
Date/Time of Note Date/Time of Note DATE: 06/28/16 TIME: 10:36 Assessment/Plan VTE Prophylaxis VTE Prophylaxis Intervention: heparin Lines/Catheters IV Catheter Type (from Nrs): Saline Lock Urinary Cath still in place: No Assessment/Plan Chief Complaint/Hosp Course A/P 1) Mechanical Fall; stable; pt/ot/snf soon. 2) Ac T1 fracture; consulted ns; may need tlso brace. 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 presently hurts all over. no kathy chest pain, or dyspnea. no new focal deficits or dysphagia. no recent fever. 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 Exam/Review of Systems Vital Signs Vitals Vital Signs Date Time Temp Pulse Resp B/P Pulse Ox O2 Delivery O2 Flow Rate FiO2 06/28/16 09:12 77 18 97 Nasal Cannula 2.0 06/28/16 07:48 97.8 114/68 Intake and Output 06/27/16 06/27/16 06/28/16 15:00 23:00 07:00 Intake Total 200 ml Balance 200 ml Exam Constitutional: alert, oriented Neck: supple Respiratory: clear to auscultation Cardiovascular: regular rate and rhythm (no m r g) Gastrointestinal: non-tender (nd; no r r g; no abd bruits.), soft Extremities: other (no edema/Homans.) Neurological: CILNICAL SCIENTIST II-XII intact, DTR's symmetric, nl mental status, nl strength (but diminished bilat lowers.) Results Result Diagram: 06/28/16 0617 06/28/16 0617 Results 24 hrs Laboratory Tests Test 06/27/16 19:26 06/27/16 20:25 06/28/16 00:57 06/28/16 06:17 Basophils # 0.0 0.0 Basophils % 0.5 0.2 Blood Morphology Comment Cholesterol Level 206 H Cholesterol/HDL Ratio 3.4 Creatine Kinase 100 77 Creatine Kinase Index 4.2 4.5 Creatinine Kinase MB (Mass) 4.19 H 3.49 H Eosinophils # 0.1 0.1 Eosinophils % 1.6 1.4 HDL Cholesterol 59 Hematocrit 46.0 38.8 Hemoglobin 15.1 13.1 Hemoglobin A1c 5.0 LDL Cholesterol, Calculated 118 Lymphocytes # 1.0 1.9 Lymphocytes % 10.9 L 23.7 Magnesium Level 1.6 L Mean Corpuscular Hemoglobin 30.5 31.3 Mean Corpuscular Hemoglobin Concent 32.8 33.8 Mean Corpuscular Volume 93.1 92.7 Mean Platelet Volume 9.2 9.3 Monocytes # 1.3 H 1.4 H Monocytes % 13.4 H 17.7 H Neutrophils # 7.0 4.6 Neutrophils % 73.6 57.0 Nucleated Red Blood Cells # 0.0 0.0 Nucleated Red Blood Cells % 0.0 0.0 Platelet Count 159 142 Red Blood Count 4.94 4.18 L Red Cell Distribution Width 16.7 H 16.3 H Thyroid Stimulating Hormone (TSH) 3.530 Triglycerides Level 145 Troponin I 0.086 0.091 White Blood Count 9.5 8.1 Activated Partial Thromboplast Time 30.9 INR International Normalized Ratio 0.98 Prothrombin Time 13.0 Prothrombin Time Ratio 1.0 Anion Gap 13 Blood Urea Nitrogen 20 Calcium Level 9.0 Carbon Dioxide Level 25 Chloride Level 105 # Creatinine 0.86 Glucose Level 78 Potassium Level 4.2 Sodium Level 139 Medications Medications Current Medications Ondansetron HCl (Zofran Inj) 4 mg Q6H PRN IV NAUSEA AND/OR VOMITING; Start at 18:30 Nitroglycerin (Nitroglycerin (Sl Tab) 0.4 Mg) 1 tab Q5M PRN SL CHEST PAIN; Start 06/27/16 at 18:30 Acetaminophen (Tylenol Tab) 650 mg Q6H PRN PO PAIN LEVEL 1-3 OR FEVER; Start 06/27/16 at 18:30 Morphine Sulfate (morphine) 2 mg Q4H PRN IV PAIN LEVEL 7-10 Last administered on 06/28/16at 09:55; Admin Dose 2 MG; Start 06/27/16 at 18:30 Docusate Sodium (Colace) 100 mg Q12H PRN PO CONSTIPATION; Start 06/27/16 at 18 :30; Stop 06/28/16 at 21:00 Aspirin (Halfprin) 81 mg DAILY PO Last administered on 06/28/16 09:22; Admin Dose 81 MG; Start 06/27/16 at 21:00 Atorvastatin Calcium (Lipitor) 40 mg QHS PO Last administered on 06/27/16 22: 10; Admin Dose 40 MG; Start 06/27/16 at 21:00 Divalproex Sodium (Depakote Er) 250 mg QHS PO Last administered on 06/27/16 22:12; Admin Dose 250 MG; Start 06/27/16 at 21:00 Divalproex Sodium (Depakote Er) 1,000 mg QHS PO Last administered on 22:11; Admin Dose 1,000 MG; Start 06/27/16 at 21:00 Gabapentin (Neurontin) 200 mg QHS PO Last administered on 06/27/16 22:12; Admin Dose 200 MG; Start 06/27/16 at 21:00 Guaifenesin (Robitussin Liquid Cup) 100 mg TID PRN PO COUGH; Start 06/27/16 at 18:30 Mirtazapine (Remeron) 15 mg HS PO Last administered on 06/27/16 22:11; Admin Dose 15 MG; Start 06/27/16 at 21:00 Multivitamins Therapeutic (Theragran) 1 tab DAILY PO Last administered on 06/28 09:23; Admin Dose 1 TAB; Start 06/28/16 at 09:00 Oxybutynin Chloride (Ditropan Xl) 5 mg DAILY PO Last administered on 09:21; Admin Dose 5 MG; Start 06/28/16 at 09:00 Primidone (Mysoline) 100 mg TID PO Last administered on 06/28/16 09:22; Admin Dose 100 MG; Start 06/27/16 at 21:00 Propranolol HCl (Inderal) 20 mg BID PO Last administered on 06/28/16 09:21; Admin Dose 20 MG; Start 06/27/16 at 21:00 Ranitidine HCl (Zantac) 150 mg Q12 PO Last administered on 06/28/16 09:23; Admin Dose 150 MG; Start 06/27/16 at 21:00 Tiotropium [place] (Spiriva) 1 inh DAILY INH Last administered on 06/28/16at 09 :20; Admin Dose 1 INH; Start 06/28/16 at 09:00 Topiramate (Topamax) 100 mg QHS PO Last administered on 06/27/16at 22:13; Admin Dose 100 MG; Start 06/27/16 at 21:00 Salmeterol Xinafoate/ Fluticasone (Advair 100/50 Diskus) 1 inh BID INH Last administered on 06/28/16at 09:25; Admin Dose 1 INH; Start 06/27/16 at 21:00 Cyanocobalamin (Vitamin B12) 250 mcg DAILY PO Last administered on 06/28/16at 09:23; Admin Dose 250 MCG; Start 06/28/16 at 09:00 Acetaminophen/ Hydrocodone Bitart ([place] (5/325)) 1 tab Q6H PRN PO PAIN; Start 06/27/16 at 22:00 Albuterol (Proventil 0.083% (Neb)) 1.25 mg Q8 NEB ; Start 06/28/16 at 14:00; Status UNV Docusate Sodium (Colace) 20 mg HS PO ; Start 06/29/16 at 21:00; Status UNV Lisinopril (Zestril) 5 mg DAILY PO ; Start 06/29/16 at 09:00; Status UNV Lorazepam (Ativan) 0.5 mg Q12 PRN IV ANXIETY; Start 06/28/16 at 21:00; Status UNV SARAI FAJARDO MD Jun 28, 2016 10:43
--- NOTE | 2016-06-28 12:18 | CONS ---
Date/Time of Note Date/Time of Note DATE: 06/28/16 TIME: 11:51 Assessment/Plan Assessment/Plan Problems: (1) Thoracic compression fracture Comment: Patient with obviously severe osteoporosis and multiple pathologic compression fractures throughout T and LS spine. No evidence of neurological compromise. Question of new fracture at T1, but this is well under 50% loss of vertebral body height. Her pain seems generalized and not localized at any one specific location. I would not recommend neurosurgical intervention. Pain control and treatment of osteoporosis. Doubt that there is any type of procedure that would be indicated for treatment of focal pain (e.g., vertebroplasty, spinal cord stimulator, etc.) due to generalized nature of pain and underlying metabolic bone problems. If pain persists or worsens, especially at the cervicothoracic junction, I would recommend follow-up X-ray or CT to assess for further progression of compression fracture at T1 (which seems to be acute). Consultation Date/Type/Reason Admit Date/Time Jun 27, 2016 at 00:50 Date of Consultation: Jun 28, 2016 Type of Consultation: Neurosurgery Reason for Consultation Spine Fractures Hx of Present Illness This is a RH patient residing in [facility] who was seen in the ER several days ago following a fall in the shower, discharged, but then sent back for further evaluation due to intractable back pain. She also has elevated troponin, which is being evaluated. She has known history of severe osteoporosis and known spine fractures in the past. One fracture obviously has been treated with vertebroplasty in the past as seen on CT. She reports that previously she was able to walk to bathroom with a walker but since the last fall she has been unable to do this. Severe pain up and down entire spine - she is unable to localize to a specific part of the spine. Right in the middle without significant radiation to extremities or anterior trunk. She denies numbness or weakness in the extremities. Has had bilateral wrist fractures in the distant past. She does not want to go into detail about situation and tells me I can "read it in the chart." Subjective hx not possible: other (she refuses detailed interview) Constitutional: other (pain) ENT: other (chapped lips) Musculoskeletal: back pain, bone/joint pain, neck pain, restricted range of motion Neurologic: headache, No focal-weakness Psychological: depression Past Medical History Medical History: high cholesterol, hypertension, other (osteoporosis, arthritis , stroke, seizures, depression) Past Surgical History Past Surgical Hx: other (hysterectomy, bilateral hip replacement, vertebroplasty) Social History Alcohol Use: none Smoking Status: Former smoker Drug Use: none Other Social History senior living resident Exam/Review of Systems Vital Signs Vitals Vital Signs Date Time Temp Pulse Resp B/P Pulse Ox O2 Delivery O2 Flow Rate FiO2 06/28/16 11:33 97.5 89 19 125/78 99 06/28/16 09:12 Nasal Cannula 2.0 Intake and Output 06/27/16 06/27/16 06/28/16 15:00 23:00 07:00 Intake Total 200 ml Balance 200 ml Exam Constitutional: alert, distress, frail Psych: anxiety, depression Head: atraumatic, other (face symmetric, tongue midline) Eyes: EOMI, PERRL, other (cannot reliably assess visual [place]) Neck: non-tender Cardiovascular: edema, No nl pulses Musculoskeletal: other (wrist deformity bilateral), No nl extremities to inspection, No range of motion Extremities: edema, No calf tenderness, No normal pulses Neurological: nl speech, No confused, No numbness (good strength in all extremities, although exam limited due to body position and pain; she is unable to move from propped position; sensation intact to LT all extremities with no sensory level; toes equivocal, unable to reliably check DTRs; impossible to check for pronator drift or dysmetria) Results I reviewed CTs of T and LS spine. T1 ?acute compression fracture <50% loss of vertebral body height and no retropulsion - vertebral body seems preserved on C-spine CT from 06/24 T2 compression fracture >50% loss of height T6 minimal compression fx T7 compression fx < 50% T10 compression fx >50% T12 minimal compression fx L1 compression fx >>50% L2 compression fx > 50% with radio-opaque material in vertebral body L4-5 anterolisthesis grade 1 Age indeterminate for all fractures, but all significant fractures seem to have some sclerosis suggesting not acute; spinal canal maintained at all levels Also reviewed C-spine CT from 06/24 C4-5 grade 1 anterolisthesis, degen changes worst at C5-6 and C6-7; no sig stenosis Result Diagram: 06/28/16 0617 06/28/16 0617 Results 24 hrs Laboratory Tests Test 06/27/16 19:26 06/27/16 20:25 06/28/16 00:57 06/28/16 06:17 Basophils # 0.0 0.0 Basophils % 0.5 0.2 Blood Morphology Comment Cholesterol Level 206 H Cholesterol/HDL Ratio 3.4 Creatine Kinase 100 77 Creatine Kinase Index 4.2 4.5 Creatinine Kinase MB (Mass) 4.19 H 3.49 H Eosinophils # 0.1 0.1 Eosinophils % 1.6 1.4 HDL Cholesterol 59 Hematocrit 46.0 38.8 Hemoglobin 15.1 13.1 Hemoglobin A1c 5.0 LDL Cholesterol, Calculated 118 Lymphocytes # 1.0 1.9 Lymphocytes % 10.9 L 23.7 Magnesium Level 1.6 L Mean Corpuscular Hemoglobin 30.5 31.3 Mean Corpuscular Hemoglobin Concent 32.8 33.8 Mean Corpuscular Volume 93.1 92.7 Mean Platelet Volume 9.2 9.3 Monocytes # 1.3 H 1.4 H Monocytes % 13.4 H 17.7 H Neutrophils # 7.0 4.6 Neutrophils % 73.6 57.0 Nucleated Red Blood Cells # 0.0 0.0 Nucleated Red Blood Cells % 0.0 0.0 Platelet Count 159 142 Red Blood Count 4.94 4.18 L Red Cell Distribution Width 16.7 H 16.3 H Thyroid Stimulating Hormone (TSH) 3.530 Triglycerides Level 145 Troponin I 0.086 0.091 White Blood Count 9.5 8.1 Activated Partial Thromboplast Time 30.9 INR International Normalized Ratio 0.98 Prothrombin Time 13.0 Prothrombin Time Ratio 1.0 Anion Gap 13 Blood Urea Nitrogen 20 Calcium Level 9.0 Carbon Dioxide Level 25 Chloride Level 105 # Creatinine 0.86 Glucose Level 78 Potassium Level 4.2 Sodium Level 139 Medications Medications Current Medications Ondansetron HCl (Zofran Inj) 4 mg Q6H PRN IV NAUSEA AND/OR VOMITING; Start at 18:30 Nitroglycerin (Nitroglycerin (Sl Tab) 0.4 Mg) 1 tab Q5M PRN SL CHEST PAIN; Start 06/27/16 at 18:30 Acetaminophen (Tylenol Tab) 650 mg Q6H PRN PO PAIN LEVEL 1-3 OR FEVER; Start 06/27/16 at 18:30 Morphine Sulfate (morphine) 2 mg Q4H PRN IV PAIN LEVEL 7-10 Last administered on 06/28/16at 09:55; Admin Dose 2 MG; Start 06/27/16 at 18:30 Docusate Sodium (Colace) 100 mg Q12H PRN PO CONSTIPATION; Start 06/27/16 at 18 :30; Stop 06/28/16 at 21:00 Aspirin (Halfprin) 81 mg DAILY PO Last administered on 06/28/16 09:22; Admin Dose 81 MG; Start 06/27/16 at 21:00 Atorvastatin Calcium (Lipitor) 40 mg QHS PO Last administered on 06/27/16 22: 10; Admin Dose 40 MG; Start 06/27/16 at 21:00 Divalproex Sodium (Depakote Er) 250 mg QHS PO Last administered on 06/27/16 22:12; Admin Dose 250 MG; Start 06/27/16 at 21:00 Divalproex Sodium (Depakote Er) 1,000 mg QHS PO Last administered on at 22:11; Admin Dose 1,000 MG; Start 06/27/16 at 21:00 Gabapentin (Neurontin) 200 mg QHS PO Last administered on 06/27/16at 22:12; Admin Dose 200 MG; Start 06/27/16 at 21:00 Guaifenesin (Robitussin Liquid Cup) 100 mg TID PRN PO COUGH; Start 06/27/16 at 18:30 Mirtazapine (Remeron) 15 mg HS PO Last administered on 06/27/16 22:11; Admin Dose 15 MG; Start 06/27/16 at 21:00 Multivitamins Therapeutic (Theragran) 1 tab DAILY PO Last administered on 06/28 09:23; Admin Dose 1 TAB; Start 06/28/16 at 09:00 Oxybutynin Chloride (Ditropan Xl) 5 mg DAILY PO Last administered on 09:21; Admin Dose 5 MG; Start 06/28/16 at 09:00 Primidone (Mysoline) 100 mg TID PO Last administered on 06/28/16 09:22; Admin Dose 100 MG; Start 06/27/16 at 21:00 Propranolol HCl (Inderal) 20 mg BID PO Last administered on 06/28/16 09:21; Admin Dose 20 MG; Start 06/27/16 at 21:00 Ranitidine HCl (Zantac) 150 mg Q12 PO Last administered on 06/28/16 09:23; Admin Dose 150 MG; Start 06/27/16 at 21:00 Tiotropium [place] (Spiriva) 1 inh DAILY INH Last administered on 06/28/16at 09 :20; Admin Dose 1 INH; Start 06/28/16 at 09:00 Topiramate (Topamax) 100 mg QHS PO Last administered on 06/27/16at 22:13; Admin Dose 100 MG; Start 06/27/16 at 21:00 Salmeterol Xinafoate/ Fluticasone (Advair 100/50 Diskus) 1 inh BID INH Last administered on 06/28/16at 09:25; Admin Dose 1 INH; Start 06/27/16 at 21:00 Cyanocobalamin (Vitamin B12) 250 mcg DAILY PO Last administered on 06/28/16at 09:23; Admin Dose 250 MCG; Start 06/28/16 at 09:00 Acetaminophen/ Hydrocodone Bitart ([place] (5/325)) 1 tab Q6H PRN PO PAIN; Start 06/27/16 at 22:00 Docusate Sodium (Colace) 20 mg HS PO ; Start 06/29/16 at 21:00 Lisinopril (Zestril) 5 mg DAILY PO ; Start 06/29/16 at 09:00 Lorazepam (Ativan) 0.5 mg Q12H PRN IV ANXIETY; Start 06/28/16 at 21:00 JESSE ANGELO MD Jun 28, 2016 12:01
--- NOTE | 2016-06-28 12:45 | CONS ---
Date/Time of Note Date/Time of Note DATE: 06/28/16 TIME: 12:37 Assessment/Plan Assessment/Plan Additional Assessment/Plan Mechanical fall Mildly elevated troponin Hypertension Osteoporosis -Patient with no symptoms of chest pain or shortness of breath and troponin elevation incidental after mechanical fall. ECG without any significant ischemic abnormalities. Troponins are trending down. Would obtain echocardiogram , continue aspirin, statin therapy if no contraindication. Consultation Date/Type/Reason Admit Date/Time Jun 27, 2016 at 00:50 Type of Consultation: cv Reason for Consultation Elevated troponin Hx of Present Illness This is a 76-year-old female who presented secondary to pain after mechanical fall. Patient states she was getting up from a seated position and with her walker, she tripped and fell. She denied any loss of consciousness, dizziness, palpitations, chest pain or shortness of breath. She has been having continual pain in her back and her hips and for that reason she came to the emergency room for further evaluation and care. She denies any chest pain, shortness of breath or dizziness. She otherwise denies exertional chest pain or shortness of breath. She was told many years ago she has mitral valve disease but is not had any shortness of breath or cardiology follow-up since then. Given troponins elevated, cardiology consultation was requested. 12 point review of systems was performed with all pertinent positives and negatives mentioned above and all else is negative Constitutional: other (pain) ENT: other (chapped lips) Musculoskeletal: back pain, bone/joint pain, neck pain, restricted range of motion Neurologic: headache, No focal-weakness Psychological: anxiety, depression Past Medical History Medical History: high cholesterol, hypertension, other (osteoporosis, arthritis , stroke, seizures, depression) Past Surgical History Past Surgical Hx: other (hysterectomy, bilateral hip replacement, vertebroplasty) Family History Significant Family History: no pertinent family hx Social History Alcohol Use: none Smoking Status: Former smoker Drug Use: none 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/Review of Systems Vital Signs Vitals Vital Signs Date Time Temp Pulse Resp B/P Pulse Ox O2 Delivery O2 Flow Rate FiO2 06/28/16 12:06 62 06/28/16 11:33 97.5 19 125/78 99 06/28/16 09:12 Nasal Cannula 2.0 Intake and Output 06/27/16 06/27/16 06/28/16 14:59 22:59 06:59 Intake Total 200 ml Balance 200 ml Exam No apparent distress Constitutional: alert, frail, oriented Head: normocephalic Neck: supple Respiratory: other (course breath sounds bilaterally, no wheezing) Cardiovascular: other (S1-S2 heard), regular rate and rhythm Gastrointestinal: bowel sounds, non-tender, soft Extremities: edema (trace) Results Result Diagram: 06/28/16 0617 06/28/16 0617 Results 24 hrs Laboratory Tests Test 06/27/16 19:26 06/27/16 20:25 06/28/16 00:57 06/28/16 06:17 Basophils # 0.0 0.0 Basophils % 0.5 0.2 Blood Morphology Comment Cholesterol Level 206 H Cholesterol/HDL Ratio 3.4 Creatine Kinase 100 77 Creatine Kinase Index 4.2 4.5 Creatinine Kinase MB (Mass) 4.19 H 3.49 H Eosinophils # 0.1 0.1 Eosinophils % 1.6 1.4 HDL Cholesterol 59 Hematocrit 46.0 38.8 Hemoglobin 15.1 13.1 Hemoglobin A1c 5.0 LDL Cholesterol, Calculated 118 Lymphocytes # 1.0 1.9 Lymphocytes % 10.9 L 23.7 Magnesium Level 1.6 L Mean Corpuscular Hemoglobin 30.5 31.3 Mean Corpuscular Hemoglobin Concent 32.8 33.8 Mean Corpuscular Volume 93.1 92.7 Mean Platelet Volume 9.2 9.3 Monocytes # 1.3 H 1.4 H Monocytes % 13.4 H 17.7 H Neutrophils # 7.0 4.6 Neutrophils % 73.6 57.0 Nucleated Red Blood Cells # 0.0 0.0 Nucleated Red Blood Cells % 0.0 0.0 Platelet Count 159 142 Red Blood Count 4.94 4.18 L Red Cell Distribution Width 16.7 H 16.3 H Thyroid Stimulating Hormone (TSH) 3.530 Triglycerides Level 145 Troponin I 0.086 0.091 White Blood Count 9.5 8.1 Activated Partial Thromboplast Time 30.9 INR International Normalized Ratio 0.98 Prothrombin Time 13.0 Prothrombin Time Ratio 1.0 Anion Gap 13 Blood Urea Nitrogen 20 Calcium Level 9.0 Carbon Dioxide Level 25 Chloride Level 105 # Creatinine 0.86 Glucose Level 78 Potassium Level 4.2 Sodium Level 139 Medications Medications Current Medications Ondansetron HCl (Zofran Inj) 4 mg Q6H PRN IV NAUSEA AND/OR VOMITING; Start 12/ 28/16 at 18:30 Nitroglycerin (Nitroglycerin (Sl Tab) 0.4 Mg) 1 tab Q5M PRN SL CHEST PAIN; Start 06/27/16 at 18:30 Acetaminophen (Tylenol Tab) 650 mg Q6H PRN PO PAIN LEVEL 1-3 OR FEVER; Start 06/27/16 at 18:30 Morphine Sulfate (morphine) 2 mg Q4H PRN IV PAIN LEVEL 7-10 Last administered on 06/28/16at 09:55; Admin Dose 2 MG; Start 06/27/16 at 18:30 Docusate Sodium (Colace) 100 mg Q12H PRN PO CONSTIPATION; Start 06/27/16 at 18 :30; Stop 06/28/16 at 21:00 Aspirin (Halfprin) 81 mg DAILY PO Last administered on 06/28/16 09:22; Admin Dose 81 MG; Start 06/27/16 at 21:00 Atorvastatin Calcium (Lipitor) 40 mg QHS PO Last administered on 06/27/16at 22: 10; Admin Dose 40 MG; Start 06/27/16 at 21:00 Divalproex Sodium (Depakote Er) 250 mg QHS PO Last administered on 06/27/16at 22:12; Admin Dose 250 MG; Start 06/27/16 at 21:00 Divalproex Sodium (Depakote Er) 1,000 mg QHS PO Last administered on at 22:11; Admin Dose 1,000 MG; Start 06/27/16 at 21:00 Gabapentin (Neurontin) 200 mg QHS PO Last administered on 06/27/16at 22:12; Admin Dose 200 MG; Start 06/27/16 at 21:00 Guaifenesin (Robitussin Liquid Cup) 100 mg TID PRN PO COUGH; Start 06/27/16 at 18:30 Mirtazapine (Remeron) 15 mg HS PO Last administered on 06/27/16at 22:11; Admin Dose 15 MG; Start 06/27/16 at 21:00 Multivitamins Therapeutic (Theragran) 1 tab DAILY PO Last administered on 06/28at 09:23; Admin Dose 1 TAB; Start 06/28/16 at 09:00 Oxybutynin Chloride (Ditropan Xl) 5 mg DAILY PO Last administered on 09:21; Admin Dose 5 MG; Start 06/28/16 at 09:00 Primidone (Mysoline) 100 mg TID PO Last administered on 06/28/16 09:22; Admin Dose 100 MG; Start 06/27/16 at 21:00 Propranolol HCl (Inderal) 20 mg BID PO Last administered on 06/28/16 09:21; Admin Dose 20 MG; Start 06/27/16 at 21:00 Ranitidine HCl (Zantac) 150 mg Q12 PO Last administered on 06/28/16 09:23; Admin Dose 150 MG; Start 06/27/16 at 21:00 Tiotropium [place] (Spiriva) 1 inh DAILY INH Last administered on 06/28/16 09 :20; Admin Dose 1 INH; Start 06/28/16 at 09:00 Topiramate (Topamax) 100 mg QHS PO Last administered on 06/27/16 22:13; Admin Dose 100 MG; Start 06/27/16 at 21:00 Salmeterol Xinafoate/ Fluticasone (Advair 100/50 Diskus) 1 inh BID INH Last administered on 06/28/16 09:25; Admin Dose 1 INH; Start 06/27/16 at 21:00 Cyanocobalamin (Vitamin B12) 250 mcg DAILY PO Last administered on 06/28/16 09:23; Admin Dose 250 MCG; Start 06/28/16 at 09:00 Acetaminophen/ Hydrocodone Bitart ([place] (5/325)) 1 tab Q6H PRN PO PAIN; Start 06/27/16 at 22:00 Docusate Sodium (Colace) 20 mg HS PO ; Start 06/29/16 at 21:00 Lisinopril (Zestril) 5 mg DAILY PO ; Start 06/29/16 at 09:00 Lorazepam 0.5 mg 0.5 mg Q12H PRN IV ANXIETY; Start 06/28/16 at 21:00 Sodium Chloride (NS) 1,000 ml @ 50 mls/hr Q20H IV ; Start 06/28/16 at 12:30 Procedures Procedures ECG done today demonstrates sinus rhythm at 80 bpm, QRS 80 ms, no significant ischemic STT wave abnormalities ECG done June 26 with sinus rhythm at 96 bpm, QRS 88 ms, nonspecific STT wave abnormalities Dominick Waters DO Jun 28, 2016 12:45
[2016-06-28] MEDS: SOD CHLORIDE 0.9% 1,000 ML IV SCH (13:07)
--- NOTE | 2016-06-28 14:02 | RADRPT ---
Echocardiogram Report Patient Name: GWENDOLYN LOPEZ Gender: Female Date: 1940 Study Date: 28-Jun-2016 Assistant Attorney General: Cherise Carlson [facility] Location: [id number] Ref. Physician: ROMÁN COTTRELL Quality: Technically Difficult Study Procedures: Transthoracic echocardiogram with complete 2D, M-Mode, and doppler examination. Indications: NSTEMI. 2D/M Mode Doppler Measurement Value Normal Ranges Measurement Value Normal Ranges LVIDd 2D 4.1 3.5 - 5.6 cm AV Peak Jerardo 1.4 m/sec LVIDs 2D 2.3 2.1 - 4.1 cm AV Peak PG 7.7 mmHg LVPWd 2D 0.8 0.6 - 1.1 cm AI Peak PG 46.9 mmHg IVSd 2D 0.8 0.6 - 1.1 cm AI Peak Jerardo 3.4 m/sec AoR Diam 2D 3.7 2.0 - 3.7 cm AI PHT 571.8 msec EDV 2D 74.0 cm3 LVOT Peak Jerardo 1.2 m/sec ESV 2D 12.2 cm3 LVOT Peak PG 6.1 mmHg LA Dimen 2D 3.7 2.3 - 4.0 cm MV E Peak Jerardo 0.6 m/sec MV A Peak Jerardo 0.7 m/sec MV E/A 0.8 MV Decel Time 169 msec MV Decel [place] 4 MV E/A 0.8 Findings Left Ventricle: Normal left ventricular systolic function. Normal left ventricular cavity size. Normal left ventricular wall thickness. Ejection fraction is visually estimated at 65 %. Tissue Doppler/Mitral Doppler indices are consistent with impaired relaxation (Stage I diastolic dysfunction). Right Ventricle: Normal right ventricular size. Normal right ventricular systolic function. Left Atrium: The left atrium is normal in size. Right Atrium: The right atrium is normal in size. Mitral Valve: Mitral valve leaflets appear mildly thickened. Mild mitral annular calcification. Mild to moderate mitral valve regurgitation. The regurgitation jet is eccentrically directed which may underestimate the severity of mitral regurgitation. Aortic Valve: No hemodynamically significant aortic stenosis by doppler. Aortic cusps appear mildly calcified. Mild aortic valve regurgitation. Tricuspid Valve: Normal appearance of the tricuspid valve. Unable to obtain RVSP due to minimal presence of tricuspid regurgitation. Pulmonic Valve: Normal pulmonic valve appearance. Pericardium: Normal pericardium with no significant pericardial effusion. Aorta: Normal aortic root. IVC: Normal size and normal respiratory collapse consistent with normal right atrial pressure. Pulmonary Artery: Normal pulmonary artery size. Conclusions 1.Normal left ventricular systolic function. Normal left ventricular cavity size. Normal left ventricular wall thickness. Ejection fraction is visually estimated at 65 %. Tissue Doppler/Mitral Doppler indices are consistent with impaired relaxation (Stage I diastolic dysfunction). 2.Normal right ventricular size. Normal right ventricular systolic function. 3.The left atrium is normal in size. 4.The right atrium is normal in size. 5.Mild to moderate mitral valve regurgitation. The regurgitation jet is eccentrically directed which may underestimate the severity of mitral regurgitation. 6.No hemodynamically significant aortic stenosis by doppler. Mild aortic valve regurgitation. 7.Normal pericardium with no significant pericardial effusion. Electronically Signed By: Dominick Waters 28-Jun-2016 14:01:33 -0800 Patient Name: GWENDOLYN LOPEZ Study Date: 28-Jun-2016 [id number]
[2016-06-28] MEDS ORDERED: PETROLATUM 5 GM OINT TOP PRN (17:00)
--- NOTE | 2016-06-28 18:55 | RADRPT ---
Vent Rate: 80 bpm RR Interval: 0 msec AR Interval: 188 msec QRS Duration: 80 msec QT Interval: 390 msec QTC Interval: 449 msec P-R-T [place]: 51 - 42 - 65 degrees Normal sinus rhythm Normal ECG Electronically Signed By: Jemal Moss [id number]
[2016-06-28] MEDS: GABAPENTIN 100 MG CAP PO SCH (20:12)
[2016-06-28] MEDS: ATORVASTATIN 40 MG TAB PO SCH (20:13)
[2016-06-28] MEDS: MIRTAZAPINE 15 MG TAB PO SCH (20:13)
[2016-06-28] MEDS: HYDROCODONE/APAP (5/325) TAB PO PRN (20:14)
[2016-06-28] MEDS: TOPIRAMATE 100 MG TAB PO SCH (20:14)
[2016-06-28] MEDS ORDERED: LORAZEPAM 2 MG INJ IV PRN (21:00)
[2016-06-28] MEDS: DIVALPROEX (ER) 500 MG TAB PO SCH (21:58)
[2016-06-28] MEDS: DIVALPROEX (ER) 250 MG TAB PO SCH (23:18)
[2016-06-29] VITALS (12 sets, daily range): BP systolic 128–163; BP diastolic 62–85; PULSE 66–82; RESP 18–21
[2016-06-29] MEDS: ALBUTEROL 0.083% (NEB) 2.5 MG/3 ML AMP NEB SCH ×3 (00:36→16:24)
[2016-06-29] MEDS: morphine 2 MG INJ IV PRN ×3 (05:45→17:54)
[2016-06-29] MEDS: SOD CHLORIDE 0.9% 1,000 ML IV SCH (07:02)
[2016-06-29 07:23] LABS: BASOPHILS % 0.3 % (0.0-2.0); EOSINOPHILS # 0.2 10^3/ul (0.0-0.5); EOSINOPHILS % 2.2 % (0.0-7.0); HEMATOCRIT 41.8 % (37.0-47.0); HEMOGLOBIN 14.1 g/dl (12.0-16.0); LYMPHOCYTES # 1.7 10^3/ul (0.8-2.9); LYMPHOCYTES % 19.3 % (15.0-51.0); MEAN CORPUSCULAR HEMOGLOBIN 31.3 pg (29.0-33.0); MEAN CORPUSCULAR HGB CONC 33.7 g/dl (32.0-37.0); MEAN CORPUSCULAR VOLUME 92.9 fl (82.0-101.0); MEAN PLATELET VOLUME 8.8 fl (7.4-10.4); MONOCYTE # 1.2 10^3/ul (0.3-0.9); MONOCYTES % 14.5 % (0.0-11.0); NEUTROPHIL # 5.5 10^3/ul (1.6-7.5); NEUTROPHILS % 63.7 % (39.0-77.0); PLATELET COUNT 148 10^3/UL (140-440); UNCORRECTED WBC 8.6 10^3/ul (4.8-10.8); WHITE BLOOD COUNT 8.6 10^3/ul (4.8-10.8)
[2016-06-29 07:24] LABS: POTASSIUM 3.9 mmol/L (3.5-5.1)
[2016-06-29 07:27] LABS: CREATININE 0.66 mg/dl (0.44-1.00)
[2016-06-29 07:28] LABS: CALCIUM 8.8 mg/dl (8.4-10.2); CHOL/HDL RATIO 3.7 RATIO; MAGNESIUM 2.1 mg/dl (1.7-2.5)
[2016-06-29 07:30] LABS: CONDITION 1; INR 1.06; LH ANALYZER COMMENTS 1; PROTIME 13.8 Sec (12.2-14.2); PT RATIO 1.1
[2016-06-29 07:31] LABS: PARTIAL THROMBOPLASTIN TIME 30.3 Sec (25.0-35.0)
[2016-06-29 07:40] LABS: TROPONIN-I 0.028 ng/ml (0.00-0.12)
[2016-06-29 07:59] LABS: THYROID STIMULATING HORMONE 1.8 MIU/L (0.465-4.680)
[2016-06-29] MEDS: SALMETEROL/FLUTICASONE 100/50 INHA INH SCH ×2 (08:40→22:27)
[2016-06-29] MEDS: TIOTROPIUM 18 MCG CAPSULE INHA DEV INH SCH (08:42)
[2016-06-29] MEDS: PRIMIDONE 50 MG TAB PO SCH ×4 (08:42→22:26)
[2016-06-29] MEDS: OXYBUTYNIN (XL) 5 MG TAB PO SCH (08:42)
[2016-06-29] MEDS: PROPRANOLOL 20 MG TAB PO SCH ×2 (08:43→22:14)
[2016-06-29] MEDS: MULTIVITAMINS THERAPEUTIC TAB PO SCH (08:43)
[2016-06-29] MEDS: RANITIDINE 150 MG TAB PO SCH ×2 (08:44→22:15)
[2016-06-29] MEDS: ASPIRIN (EC) 81 MG TAB PO SCH (08:44)
[2016-06-29] MEDS: CYANOCOBALAMIN 500 MCG TAB PO SCH (08:44)
[2016-06-29] MEDS: ENOXAPARIN 40 MG/0.4 ML SYG SC SCH (08:46)
[2016-06-29] MEDS: HYDROCODONE/APAP (5/325) TAB PO PRN ×2 (08:51→13:31)
[2016-06-29] MEDS ORDERED: LISINOPRIL 5 MG TAB PO SCH (09:00)
--- NOTE | 2016-06-29 10:17 | PDOCDIS ---
Discharge Instructions DIAGNOSIS Discharge Diagnosis: fall CONDITION Patient Condition: Fair HOME CARE INSTRUCTIONS: Special Diet: low fat, low cholesterol diet ACTIVITY: Activity Restrictions: Slowly Increase Activity Do not Drive SARAI FAJARDO MD Jun 29, 2016 10:17
[2016-06-29] MEDS ORDERED: CALC-143 PO (10:20)
--- NOTE | 2016-06-29 11:18 | DS ---
DATE OF ADMISSION: 06/27/2016 DATE OF DISCHARGE: 06/29/2016 PRIMARY CARE PHYSICIAN: Unknown. CONSULTANTS: 1. Dr. Jesse Trujillo 2. Dr. Waters DIAGNOSES ON ADMISSION: 1. Mechanical fall. 2. False positive troponin. 3. Thoracic fracture. DIAGNOSES ON DISCHARGE: 1. Mechanical fall, stable. Continue PT, OT. 2. False positive troponin. 3. Acute thoracic compression fracture. 4. Spondylosis. 5. Degenerative joint disease. 6. Osteoporosis. 7. Past tobacco use. 8. Chronic obstructive pulmonary disease. 9. Mild abdominal aortic aneurysm. 10. Seizure disorder, chronic. 11. History of stroke. 12. Hypertension. 13. Valvular heart disease/moderate mitral regurgitation. HOSPITAL COURSE: This is a 76-year-old female with chronic osteoporosis, DJD, spondylosis , and vertebral compression fractures who was a previous smoker. All of this sounds like she has a bad back. The patient was admitted with a mechanical fall at [facility]. Obviously, she has pain from h ead to toe from multiple bruises and soft tissue injury. She was evaluated in the hospital for acut e fracture and neurosurgical evaluation. She has been seen by neurosurgery and is stable from neuro surgical standpoint and does not require surgical intervention. She has multiple compression fractu res, some of which are old. There is no significant spinal stenosis that would require urgent inter vention. Obviously, she has severe deconditioning and will benefit from PT, OT, and pain management . We will obtain a brace as indicated. The patient will need some sort of ongoing continuity of reevaluation of fall precautions as a long- term plan. She needs advanced care planning established. Another injury in the future could lead t o a hip fracture or a devastating comorbidity such as head trauma. Seizure disorder, chronic, stable. Continue medical management. History of posterior communicating artery distribution occipital stroke, stable. Continue risk fact or modification. She needs advanced care planning revaluated. DJD, stable. Continue supportive care. False positive troponin, probably due to muscle injury or mild rhabdo, stable. Continue medical man agement. Valvular heart disease, moderate MR, stable. Continue supportive care. No evidence of CHF. Abdominal aortic aneurysm, mild 3 cm, stable. Continue beta tracy. COPD, stable. Continue supportive care. Deconditioning, stable. Discharge to SNF. Neurosurgery noted questionable T1 acute compression fracture. There is less than 50% loss of verte bral height and no retropulsion. The body height seems preserved on C-spine. T2 compression fractu re greater than 50% loss of height, T6 with minimal compression fracture, T7 with fraction less than 50%. T10 fracture with greater than 50%, T12 minimal compression fracture, L1 compression fracture greater than 50%, L2 compression fracture greater than 50% with radiopaque material in the vertebra l body, and I believe this was the area of previous vertebroplasty. L4-L5 anterolisthesis, grade I. Age indeterminate for all fractures. There is some degree of sclerosis suggesting that most fract ures are nonacute. Spinal canal is maintained at all levels. C-spine was reviewed regarding C4-5 g rade I anterolisthesis with degenerative changes, worse at C5-6, C6-7. No significant spinal stenos is. Echo: EF of 65%, mild to moderate valvular heart disease with MR. No wall motion abnormalities. E KG: Sinus rhythm. CAT scan of the brain: No acute process. There is old left posterior cerebral artery distribution infarct, microangiopathic atrophy changes, abdominal aortic aneurysm noted 3 cm without dissection, old right superior inferior pubic rami fractures, marked osteopenia, bilateral h ip arthroplasties, moderate retained stool, left lower pole renal cysts, atelectasis, cardiomegaly. LABORATORY DATA: CBC essentially unremarkable. INR 1. Hemoglobin and hematocrit were 16 and 48 on admission. She may have been hypovolemic. Valproic acid of 49. CMP essentially unremarkable. A1 c of 5. Troponin down to 0.02. Total cholesterol 157, triglycerides 115, LDL of 92, HDL of 42. TS H of 1.8. Troponin is high as 0.486. TSH of 3.5. DISCHARGE PLAN: The patient will be discharged to long-term facility. DIET: Low salt, cholesterol. ACTIVITY: Weightbearing as tolerated. ALLERGIES: 1. PENICILLIN. 2. CHICKEN DERIVED LAMOTRIGINE. 3. DARVOCET. 4. VALSARTAN. CONDITION: Fair. REASON FOR ADMISSION: Mechanical fall. BARRIERS TO DISCHARGE: None. PENDING TESTS: None. FUNCTIONAL STATUS: The patient is awake, alert, and aware of the plan of care and options. DURABLE MEDICAL EQUIPMENT: Pending. May need a walker or brace, although this may be provided by [facility]. MEDICATIONS: STOPPED MEDICATIONS: 1. Restoril. 2. Ativan. 3. Colace. CONTINUED MEDICATIONS: 1. Albuterol 2 puffs every 4 hours as needed. 2. Spiriva 18 mcg 1 puff daily. 3. Lipitor 40 at bedtime daily. 4. Lisinopril 5 twice daily. 5. Ropinirole 20 twice daily. 6. Aspirin 81 daily. 7. Fioricet 1 capsule every 4 hours as needed. 8. Depakote ER 1250 at bedtime. 9. Neurontin 200 at bedtime. 10. Lanse 5, one every 4 hours as needed. 11. Remeron 15 at bedtime daily. 12. Naproxen 500 daily. 13. Mysoline 100 mg 3 times daily. 14. Topamax 100 mg at bedtime daily. 15. Pulmicort as directed. 16. Symbicort 2 puffs twice daily. 17. Robitussin as needed. 18. Ranitidine 150 twice daily. 19. Oxybutynin 5 daily. 20. B12 250 mcg daily. 21. Multivitamin daily. 22. Cranberry fruit 450 daily. ALTERED MEDICATIONS: None. NEW MEDICATIONS: 1. Tylenol as needed. 2. Lovenox 40 subcutaneous daily for 1 week. 3. Lanse 5, one every 4 hours as needed. 4. Topical Vaseline twice daily as needed. 5. Senna-S 2 tablets at bedtime daily. 6. Os-Ernie or calcium 1 tablet twice daily. Dictated By: SARAI MEDINA/SUE Conf#: [id number] DID#: [id number] CC: LUCINDA WATERS DO; JESSE TRUJILLO M.D.;*[facility]*
--- NOTE | 2016-06-29 11:19 | CONS ---
Date/Time of Note Date/Time of Note DATE: 06/29/16 TIME: 11:17 Assessment/Plan Assessment/Plan Additional Assessment/Plan Mechanical fall Mildly elevated troponin Hypertension Osteoporosis Preserved ejection fraction Mitral regurgitation -Patient continues to deny chest pain or shortness of breath. Blood pressure on the higher end, would increase lisinopril to twice a day dosing as well as given mitral regurgitation. Otherwise no further inpatient cardiac workup needed at the current time. Consultation Date/Type/Reason Admit Date/Time Jun 27, 2016 at 00:50 Initial Consult Date 06/28/16 Type of Consultation: cv 24 HR Interval Summary Free Text/Dictation Denies chest pain, shortness of breath or palpitations Exam/Review of Systems Vital Signs Vitals Vital Signs Date Time Temp Pulse Resp B/P Pulse Ox O2 Delivery O2 Flow Rate FiO2 06/29/16 08:44 98.1 20 162/73 96 06/29/16 08:25 79 Nasal Cannula 2.0 Intake and Output 06/28/16 06/28/16 06/29/16 15:00 23:00 07:00 Intake Total 720 ml 900 ml Balance 720 ml 900 ml Exam No apparent distress Constitutional: alert, frail, oriented Head: normocephalic Respiratory: other (course breath sounds bilaterally, no wheezing) Cardiovascular: other (S1-S2 heard), regular rate and rhythm, systolic murmur Gastrointestinal: bowel sounds, non-tender, soft Extremities: other (no edema) Results Result Diagram: 06/29/16 0650 06/29/16 0650 Results 24 hrs Laboratory Tests Test 06/29/16 06:50 Activated Partial Thromboplast Time 30.3 Anion Gap 15 Basophils # 0.0 Basophils % 0.3 Blood Morphology Comment Blood Urea Nitrogen 14 Calcium Level 8.8 Carbon Dioxide Level 25 Chloride Level 103 Cholesterol Level 157 Cholesterol/HDL Ratio 3.7 Creatinine 0.66 Eosinophils # 0.2 Eosinophils % 2.2 Glucose Level 91 HDL Cholesterol 42 # Hematocrit 41.8 Hemoglobin 14.1 Hemoglobin A1c 5.0 INR International Normalized Ratio 1.06 LDL Cholesterol, Calculated 92 Lymphocytes # 1.7 Lymphocytes % 19.3 Magnesium Level 2.1 Mean Corpuscular Hemoglobin 31.3 Mean Corpuscular Hemoglobin Concent 33.7 Mean Corpuscular Volume 92.9 Mean Platelet Volume 8.8 Monocytes # 1.2 H Monocytes % 14.5 H Neutrophils # 5.5 Neutrophils % 63.7 Nucleated Red Blood Cells # 0.0 Nucleated Red Blood Cells % 0.0 Phosphorus Level 3.0 Platelet Count 148 Potassium Level 3.9 Prothrombin Time 13.8 Prothrombin Time Ratio 1.1 Red Blood Count 4.50 Red Cell Distribution Width 17.0 H Sodium Level 139 Thyroid Stimulating Hormone (TSH) 1.800 Triglycerides Level 115 Troponin I 0.028 Valproic Acid (Depakene) Level 49 L White Blood Count 8.6 Medications Medications Current Medications Ondansetron HCl (Zofran Inj) 4 mg Q6H PRN IV NAUSEA AND/OR VOMITING; Start at 18:30 Nitroglycerin (Nitroglycerin (Sl Tab) 0.4 Mg) 1 tab Q5M PRN SL CHEST PAIN; Start 06/27/16 at 18:30 Acetaminophen (Tylenol Tab) 650 mg Q6H PRN PO PAIN LEVEL 1-3 OR FEVER; Start 06/27/16 at 18:30 Morphine Sulfate (morphine) 2 mg Q4H PRN IV PAIN LEVEL 7-10 Last administered on 06/29/16at 11:00; Admin Dose 2 MG; Start 06/27/16 at 18:30 Aspirin (Halfprin) 81 mg DAILY PO Last administered on 06/29/16at 08:44; Admin Dose 81 MG; Start 06/27/16 at 21:00 Atorvastatin Calcium (Lipitor) 40 mg QHS PO Last administered on 06/28/16at 20: 13; Admin Dose 40 MG; Start 06/27/16 at 21:00 Divalproex Sodium (Depakote Er) 250 mg QHS PO Last administered on 06/28/16at 23:18; Admin Dose 250 MG; Start 06/27/16 at 21:00 Divalproex Sodium (Depakote Er) 1,000 mg QHS PO Last administered on at 21:58; Admin Dose 1,000 MG; Start 06/27/16 at 21:00 Gabapentin (Neurontin) 200 mg QHS PO Last administered on 06/28/16at 20:12; Admin Dose 200 MG; Start 06/27/16 at 21:00 Guaifenesin (Robitussin Liquid Cup) 100 mg TID PRN PO COUGH; Start 06/27/16 at 18:30 Mirtazapine (Remeron) 15 mg HS PO Last administered on 06/28/16 20:13; Admin Dose 15 MG; Start 06/27/16 at 21:00 Multivitamins Therapeutic (Theragran) 1 tab DAILY PO Last administered on 06/29 08:43; Admin Dose 1 TAB; Start 06/28/16 at 09:00 Oxybutynin Chloride (Ditropan Xl) 5 mg DAILY PO Last administered on 08:42; Admin Dose 5 MG; Start 06/28/16 at 09:00 Primidone (Mysoline) 100 mg TID PO Last administered on 06/29/16 08:42; Admin Dose 100 MG; Start 06/27/16 at 21:00 Propranolol HCl (Inderal) 20 mg BID PO Last administered on 06/29/16 08:43; Admin Dose 20 MG; Start 06/27/16 at 21:00 Ranitidine HCl (Zantac) 150 mg Q12 PO Last administered on 06/29/16 08:44; Admin Dose 150 MG; Start 06/27/16 at 21:00 Tiotropium [place] (Spiriva) 1 inh DAILY INH Last administered on 06/29/16 08 :42; Admin Dose 1 INH; Start 06/28/16 at 09:00 Topiramate (Topamax) 100 mg QHS PO Last administered on 06/28/16 20:14; Admin Dose 100 MG; Start 06/27/16 at 21:00 Salmeterol Xinafoate/ Fluticasone (Advair 100/50 Diskus) 1 inh BID INH Last administered on 06/29/16 08:40; Admin Dose 1 INH; Start 06/27/16 at 21:00 Cyanocobalamin (Vitamin B12) 250 mcg DAILY PO Last administered on 06/29/16 08:44; Admin Dose 250 MCG; Start 06/28/16 at 09:00 Docusate Sodium (Colace) 20 mg HS PO ; Start 06/29/16 at 21:00 Lisinopril (Zestril) 5 mg DAILY PO Last administered on 06/29/16 08:44; Admin Dose 5 MG; Start 06/29/16 at 09:00 Lorazepam (Ativan) 0.5 mg Q12H PRN IV ANXIETY; Start 12/29/16 at 21:00 Enoxaparin Sodium (Lovenox) 40 mg DAILY SC Last administered on 06/29/16at 08: 46; Admin Dose 40 MG; Start 06/29/16 at 09:00 Petrolatum (Vaseline) 1 ea BID PRN TOP DRY MOUTH; Start 06/28/16 at 17:00 Acetaminophen/ Hydrocodone Bitart ([place] (5/325)) 1 tab Q4H PRN PO PAIN; Start 06/29/16 at 13:00 Senna/Docusate Sodium (Senokot-S) 2 tab HS PO ; Start 06/29/16 at 21:00 Dominick Waters DO Jun 29, 2016 11:19
[2016-06-29] MEDS: DIVALPROEX (ER) 250 MG TAB PO SCH (21:00)
[2016-06-29] MEDS: ATORVASTATIN 40 MG TAB PO SCH (22:15)
[2016-06-29] MEDS: DIVALPROEX (ER) 500 MG TAB PO SCH (22:15)
[2016-06-29] MEDS: GABAPENTIN 100 MG CAP PO SCH (22:16)
[2016-06-29] MEDS: SENNA/DOCUSATE NA (8.6MG/50MG) TAB PO SCH (22:16)
[2016-06-29] MEDS: TOPIRAMATE 100 MG TAB PO SCH (22:16)
[2016-06-29] MEDS: MIRTAZAPINE 15 MG TAB PO SCH (22:16)
[2016-06-29] MEDS: DOCUSATE SODIUM 100 MG CAP PO SCH (22:25)
[2016-06-29] MEDS: LISINOPRIL 5 MG TAB PO SCH (22:26)
[2016-06-30] VITALS (12 sets, daily range): BP systolic 138–185; BP diastolic 69–98; PULSE 60–83; RESP 17–20
[2016-06-30] MEDS: HYDROCODONE/APAP (5/325) TAB PO PRN ×3 (00:11→21:17)
[2016-06-30] MEDS: ALBUTEROL 0.083% (NEB) 2.5 MG/3 ML AMP NEB SCH ×3 (00:40→17:41)
[2016-06-30] MEDS: SALMETEROL/FLUTICASONE 100/50 INHA INH SCH ×2 (08:24→20:30)
[2016-06-30] MEDS: LISINOPRIL 5 MG TAB PO SCH ×2 (08:25→20:40)
[2016-06-30] MEDS: RANITIDINE 150 MG TAB PO SCH ×2 (08:25→20:31)
[2016-06-30] MEDS: OXYBUTYNIN (XL) 5 MG TAB PO SCH (08:25)
[2016-06-30] MEDS: PROPRANOLOL 20 MG TAB PO SCH ×2 (08:25→20:40)
[2016-06-30] MEDS: MULTIVITAMINS THERAPEUTIC TAB PO SCH (08:26)
[2016-06-30] MEDS: ASPIRIN (EC) 81 MG TAB PO SCH (08:26)
[2016-06-30] MEDS: CYANOCOBALAMIN 500 MCG TAB PO SCH (08:26)
[2016-06-30] MEDS: ENOXAPARIN 40 MG/0.4 ML SYG SC SCH (08:28)
--- NOTE | 2016-06-30 11:51 | PN ---
Date/Time of Note Date/Time of Note DATE: 06/30/16 TIME: 11:48 Assessment/Plan VTE Prophylaxis VTE Prophylaxis Intervention: LMWH Lines/Catheters IV Catheter Type (from Nrs): Saline Lock Urinary Cath still in place: No Assessment/Plan Chief Complaint/Hosp Course A/P 1) Mechanical Fall; stable; pt/ot. DC to snf. 2) Ac? T1 fracture; sp NS consult; may need tlso brace. no surgery needed. 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 Exam/Review of Systems Vital Signs Vitals Vital Signs Date Time Temp Pulse Resp B/P Pulse Ox O2 Delivery O2 Flow Rate FiO2 06/30/16 11:31 97.9 70 18 178/90 93 06/30/16 08:40 Nasal Cannula 2.0 Intake and Output 06/29/16 06/29/16 06/30/16 15:00 23:00 07:00 Intake Total 600 ml 400 ml Balance 600 ml 400 ml Exam Constitutional: alert, oriented Respiratory: clear to auscultation Cardiovascular: regular rate and rhythm Gastrointestinal: non-tender (nd; no r r g), soft Extremities: other (no edema; reflexes symmetrical. ) Results Result Diagram: 06/29/16 0650 06/29/16 0650 Medications Medications Current Medications Ondansetron HCl (Zofran Inj) 4 mg Q6H PRN IV NAUSEA AND/OR VOMITING; Start at 18:30 Nitroglycerin (Nitroglycerin (Sl Tab) 0.4 Mg) 1 tab Q5M PRN SL CHEST PAIN; Start 06/27/16 at 18:30 Acetaminophen (Tylenol Tab) 650 mg Q6H PRN PO PAIN LEVEL 1-3 OR FEVER; Start 06/27/16 at 18:30 Morphine Sulfate (morphine) 2 mg Q4H PRN IV PAIN LEVEL 7-10 Last administered on 06/29/16 17:54; Admin Dose 2 MG; Start 06/27/16 at 18:30 Aspirin (Halfprin) 81 mg DAILY PO Last administered on 06/30/16 08:26; Admin Dose 81 MG; Start 06/27/16 at 21:00 Atorvastatin Calcium (Lipitor) 40 mg QHS PO Last administered on 06/29/16 22: 15; Admin Dose 40 MG; Start 06/27/16 at 21:00 Divalproex Sodium (Depakote Er) 250 mg QHS PO Last administered on 06/29/16 21:00; Admin Dose 250 MG; Start 06/27/16 at 21:00 Divalproex Sodium (Depakote Er) 1,000 mg QHS PO Last administered on 22:15; Admin Dose 1,000 MG; Start 06/27/16 at 21:00 Gabapentin (Neurontin) 200 mg QHS PO Last administered on 06/29/16 22:16; Admin Dose 200 MG; Start 06/27/16 at 21:00 Guaifenesin (Robitussin Liquid Cup) 100 mg TID PRN PO COUGH; Start 06/27/16 at 18:30 Mirtazapine (Remeron) 15 mg HS PO Last administered on 06/29/16 22:16; Admin Dose 15 MG; Start 06/27/16 at 21:00 Multivitamins Therapeutic (Theragran) 1 tab DAILY PO Last administered on 06/30 08:26; Admin Dose 1 TAB; Start 06/28/16 at 09:00 Oxybutynin Chloride (Ditropan Xl) 5 mg DAILY PO Last administered on 08:25; Admin Dose 5 MG; Start 06/28/16 at 09:00 Primidone (Mysoline) 100 mg TID PO Last administered on 06/29/16 22:26; Admin Dose 100 MG; Start 06/27/16 at 21:00 Propranolol HCl (Inderal) 20 mg BID PO Last administered on 06/30/16 08:25; Admin Dose 20 MG; Start 06/27/16 at 21:00 Ranitidine HCl (Zantac) 150 mg Q12 PO Last administered on 06/30/16 08:25; Admin Dose 150 MG; Start 06/27/16 at 21:00 Tiotropium [place] (Spiriva) 1 inh DAILY INH Last administered on 06/29/16 08 :42; Admin Dose 1 INH; Start 06/28/16 at 09:00 Topiramate (Topamax) 100 mg QHS PO Last administered on 06/29/16 22:16; Admin Dose 100 MG; Start 06/27/16 at 21:00 Salmeterol Xinafoate/ Fluticasone (Advair 100/50 Diskus) 1 inh BID INH Last administered on 06/30/16 08:24; Admin Dose 1 INH; Start 06/27/16 at 21:00 Cyanocobalamin (Vitamin B12) 250 mcg DAILY PO Last administered on 06/30/16 08:26; Admin Dose 250 MCG; Start 06/28/16 at 09:00 Docusate Sodium (Colace) 20 mg HS PO Last administered on 06/29/16at 22:25; Admin Dose 20 MG; Start 06/29/16 at 21:00 Lorazepam (Ativan) 0.5 mg Q12H PRN IV ANXIETY; Start 06/28/16 at 21:00 Enoxaparin Sodium (Lovenox) 40 mg DAILY SC Last administered on 06/30/16 08: 28; Admin Dose 40 MG; Start 06/29/16 at 09:00 Petrolatum (Vaseline) 1 ea BID PRN TOP DRY MOUTH; Start 06/28/16 at 17:00 Acetaminophen/ Hydrocodone Bitart ([place] (5/325)) 1 tab Q4H PRN PO PAIN Last administered on 06/30/16at 00:11; Admin Dose 1 TAB; Start 06/29/16 at 13:00 Senna/Docusate Sodium (Senokot-S) 2 tab HS PO Last administered on 06/29/16 22:16; Admin Dose 2 TAB; Start 06/29/16 at 21:00 Lisinopril (Zestril) 5 mg BID PO Last administered on 06/30/16 08:25; Admin Dose 5 MG; Start 06/29/16 at 21:00 SARAI FAJARDO MD Jun 30, 2016 11:51
[2016-06-30] MEDS: LIDOCAINE 5% PATCH TD SCH (14:05)
[2016-06-30] MEDS: TIOTROPIUM 18 MCG CAPSULE INHA DEV INH SCH (14:05)
[2016-06-30] MEDS: PRIMIDONE 50 MG TAB PO SCH ×2 (14:06→20:33)
[2016-06-30] MEDS: morphine 2 MG INJ IV PRN (18:49)
[2016-06-30] MEDS: GABAPENTIN 100 MG CAP PO SCH (20:30)
[2016-06-30] MEDS: MIRTAZAPINE 15 MG TAB PO SCH (20:30)
[2016-06-30] MEDS: ATORVASTATIN 40 MG TAB PO SCH (20:30)
[2016-06-30] MEDS: DOCUSATE SODIUM 100 MG CAP PO SCH (20:31)
[2016-06-30] MEDS: DIVALPROEX (ER) 500 MG TAB PO SCH (20:32)
[2016-06-30] MEDS: SENNA/DOCUSATE NA (8.6MG/50MG) TAB PO SCH (20:33)
[2016-06-30] MEDS: TOPIRAMATE 100 MG TAB PO SCH (20:33)
[2016-06-30] MEDS: DIVALPROEX (ER) 250 MG TAB PO SCH (22:04)
[2016-07-01] VITALS (11 sets, daily range): BP systolic 135–163; BP diastolic 71–88; PULSE 62–79; RESP 16–19
[2016-07-01] MEDS: ALBUTEROL 0.083% (NEB) 2.5 MG/3 ML AMP NEB SCH ×2 (00:57→08:31)
[2016-07-01] MEDS: morphine 2 MG INJ IV PRN (06:01)
[2016-07-01] MEDS: SALMETEROL/FLUTICASONE 100/50 INHA INH SCH ×2 (08:12→21:42)
[2016-07-01] MEDS: LIDOCAINE 5% PATCH TD SCH (08:12)
[2016-07-01] MEDS: OXYBUTYNIN (XL) 5 MG TAB PO SCH (08:13)
[2016-07-01] MEDS: TIOTROPIUM 18 MCG CAPSULE INHA DEV INH SCH (08:13)
[2016-07-01] MEDS: PROPRANOLOL 20 MG TAB PO SCH ×2 (08:14→21:23)
[2016-07-01] MEDS: PRIMIDONE 50 MG TAB PO SCH ×3 (08:15→21:25)
[2016-07-01] MEDS: MULTIVITAMINS THERAPEUTIC TAB PO SCH (08:15)
[2016-07-01] MEDS: CYANOCOBALAMIN 500 MCG TAB PO SCH (08:15)
[2016-07-01] MEDS: HYDROCODONE/APAP (5/325) TAB PO PRN ×4 (08:15→21:24)
[2016-07-01] MEDS: RANITIDINE 150 MG TAB PO SCH ×2 (08:15→21:25)
[2016-07-01] MEDS: ASPIRIN (EC) 81 MG TAB PO SCH (08:15)
[2016-07-01] MEDS: LISINOPRIL 5 MG TAB PO SCH ×2 (08:16→21:24)
[2016-07-01] MEDS: ENOXAPARIN 40 MG/0.4 ML SYG SC SCH (08:17)
--- NOTE | 2016-07-01 11:37 | PN ---
Date/Time of Note Date/Time of Note DATE: 07/01/16 TIME: 11:34 Assessment/Plan VTE Prophylaxis VTE Prophylaxis Intervention: LMWH Lines/Catheters IV Catheter Type (from Nrs): Saline Lock Urinary Cath still in place: No Assessment/Plan Chief Complaint/Hosp Course A/P 1) Mechanical Fall; stable; Cont pt/ot. DC to snf. 2) Ac? T1 fracture; NS consult appreciated; may need tlso brace. no surgery needed. 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 12) T2/T3 fracture status 13) FTT; dc to SNF. Problems: Subjective 24 Hr Interval Summary Free Text/Dictation S - no events. Exam/Review of Systems Vital Signs Vitals Vital Signs Date Time Temp Pulse Resp B/P Pulse Ox O2 Delivery O2 Flow Rate FiO2 07/01/16 08:30 77 16 96 Nasal Cannula 2.0 07/01/16 07:54 98.8 160/83 Intake and Output 06/30/16 06/30/16 07/01/16 15:00 23:00 07:00 Intake Total 240 ml 360 ml 400 ml Balance 240 ml 360 ml 400 ml Exam Constitutional: alert, oriented Cardiovascular: regular rate and rhythm Gastrointestinal: non-tender (nd; no r r g), soft Musculoskeletal: other (Back -ongoing ecchymosis midline ~ T4 level) Extremities: other (no edema; reflexes - symmetrical.) Results Result Diagram: 06/29/16 0650 06/29/16 0650 Medications Medications Current Medications Ondansetron HCl (Zofran Inj) 4 mg Q6H PRN IV NAUSEA AND/OR VOMITING; Start at 18:30 Nitroglycerin (Nitroglycerin (Sl Tab) 0.4 Mg) 1 tab Q5M PRN SL CHEST PAIN; Start 06/27/16 at 18:30 Acetaminophen (Tylenol Tab) 650 mg Q6H PRN PO PAIN LEVEL 1-3 OR FEVER; Start 06/27/16 at 18:30 Morphine Sulfate (morphine) 2 mg Q4H PRN IV PAIN LEVEL 7-10 Last administered on 07/01/16 06:01; Admin Dose 2 MG; Start 06/27/16 at 18:30 Aspirin (Halfprin) 81 mg DAILY PO Last administered on 07/01/16 08:15; Admin Dose 81 MG; Start 06/27/16 at 21:00 Atorvastatin Calcium (Lipitor) 40 mg QHS PO Last administered on 06/30/16 20: 30; Admin Dose 40 MG; Start 06/27/16 at 21:00 Divalproex Sodium (Depakote Er) 250 mg QHS PO Last administered on 06/30/16 22:04; Admin Dose 250 MG; Start 06/27/16 at 21:00 Divalproex Sodium (Depakote Er) 1,000 mg QHS PO Last administered on 20:32; Admin Dose 1,000 MG; Start 06/27/16 at 21:00 Gabapentin (Neurontin) 200 mg QHS PO Last administered on 06/30/16 20:30; Admin Dose 200 MG; Start 06/27/16 at 21:00 Guaifenesin (Robitussin Liquid Cup) 100 mg TID PRN PO COUGH; Start 06/27/16 at 18:30 Mirtazapine (Remeron) 15 mg HS PO Last administered on 06/30/16 20:30; Admin Dose 15 MG; Start 06/27/16 at 21:00 Multivitamins Therapeutic (Theragran) 1 tab DAILY PO Last administered on 08:15; Admin Dose 1 TAB; Start 06/28/16 at 09:00 Oxybutynin Chloride (Ditropan Xl) 5 mg DAILY PO Last administered on 07/01/16 08:13; Admin Dose 5 MG; Start 06/28/16 at 09:00 Primidone (Mysoline) 100 mg TID PO Last administered on 07/01/16 08:15; Admin Dose 100 MG; Start 06/27/16 at 21:00 Propranolol HCl (Inderal) 20 mg BID PO Last administered on 07/01/16 08:14; Admin Dose 20 MG; Start 06/27/16 at 21:00 Ranitidine HCl (Zantac) 150 mg Q12 PO Last administered on 07/01/16 08:15; Admin Dose 150 MG; Start 06/27/16 at 21:00 Tiotropium [place] (Spiriva) 1 inh DAILY INH Last administered on 07/01/16 08: 13; Admin Dose 1 INH; Start 06/28/16 at 09:00 Topiramate (Topamax) 100 mg QHS PO Last administered on 06/30/16at 20:33; Admin Dose 100 MG; Start 06/27/16 at 21:00 Salmeterol Xinafoate/ Fluticasone (Advair 100/50 Diskus) 1 inh BID INH Last administered on 07/01/16 08:12; Admin Dose 1 INH; Start 06/27/16 at 21:00 Cyanocobalamin (Vitamin B12) 250 mcg DAILY PO Last administered on 07/01/16 08: 15; Admin Dose 250 MCG; Start 06/28/16 at 09:00 Docusate Sodium (Colace) 20 mg HS PO Last administered on 06/30/16 20:31; Admin Dose 20 MG; Start 06/29/16 at 21:00 Lorazepam (Ativan) 0.5 mg Q12H PRN IV ANXIETY; Start 06/28/16 at 21:00 Enoxaparin Sodium (Lovenox) 40 mg DAILY SC Last administered on 07/01/16 08:17 ; Admin Dose 40 MG; Start 06/29/16 at 09:00 Petrolatum (Vaseline) 1 ea BID PRN TOP DRY MOUTH; Start 06/28/16 at 17:00 Acetaminophen/ Hydrocodone Bitart ([place] (5/325)) 1 tab Q4H PRN PO PAIN Last administered on 07/01/16 08:15; Admin Dose 1 TAB; Start 06/29/16 at 13:00 Senna/Docusate Sodium (Senokot-S) 2 tab HS PO Last administered on 06/30/16at 20:33; Admin Dose 2 TAB; Start 06/29/16 at 21:00 Lisinopril (Zestril) 5 mg BID PO Last administered on 07/01/16 08:16; Admin Dose 5 MG; Start 06/29/16 at 21:00 Lidocaine (Lidoderm) 2 patch DAILY TD Last administered on 07/01/16t 08:12; Admin Dose 2 PATCH; Start 06/30/16 at 12:30 SARAI FAJARDO MD Jul 01, 2016 11:37
[2016-07-01] MEDS ORDERED: ALBUTEROL 0.083% (NEB) 2.5 MG/3 ML AMP NEB PRN (12:00)
[2016-07-01] MEDS ORDERED: BISACODYL (EC) 5 MG TAB PO ONE ×2 (12:00→12:53)
--- NOTE | 2016-07-01 17:56 | CONS ---
Date/Time of Note Date/Time of Note DATE: 07/01/16 TIME: 17:54 Assessment/Plan Assessment/Plan Additional Assessment/Plan Mechanical fall Mildly elevated troponin Hypertension Osteoporosis Preserved ejection fraction Mitral regurgitation -Blood pressure has improved, continue beta tracy and NOREEN inhibitor. Awaiting transfer to correction facility. Consultation Date/Type/Reason Admit Date/Time Jun 27, 2016 at 00:50 Initial Consult Date 06/28/16 Type of Consultation: cv 24 HR Interval Summary Free Text/Dictation Denies chest pain, shortness of breath or palpitations. Still with back pain but better Exam/Review of Systems Vital Signs Vitals Vital Signs Date Time Temp Pulse Resp B/P Pulse Ox O2 Delivery O2 Flow Rate FiO2 07/01/16 16:35 68 07/01/16 16:00 98.6 18 135/88 95 07/01/16 08:30 Nasal Cannula 2.0 Intake and Output 06/30/16 06/30/16 07/01/16 15:00 23:00 07:00 Intake Total 240 ml 360 ml 400 ml Balance 240 ml 360 ml 400 ml Exam No apparent distress Constitutional: alert, frail, oriented Head: normocephalic Neck: supple Respiratory: other (course breath sounds bilaterally, no wheezing) Cardiovascular: other (S1 and S2 heard), regular rate and rhythm, systolic murmur Gastrointestinal: bowel sounds, non-tender, soft Extremities: other (no edema) Results Result Diagram: 06/29/16 0650 06/29/16 0650 Medications Medications Current Medications Ondansetron HCl (Zofran Inj) 4 mg Q6H PRN IV NAUSEA AND/OR VOMITING; Start at 18:30 Nitroglycerin (Nitroglycerin (Sl Tab) 0.4 Mg) 1 tab Q5M PRN SL CHEST PAIN; Start 06/27/16 at 18:30 Acetaminophen (Tylenol Tab) 650 mg Q6H PRN PO PAIN LEVEL 1-3 OR FEVER; Start 06/27/16 at 18:30 Morphine Sulfate (morphine) 2 mg Q4H PRN IV PAIN LEVEL 7-10 Last administered on 07/01/16 06:01; Admin Dose 2 MG; Start 06/27/16 at 18:30 Aspirin (Halfprin) 81 mg DAILY PO Last administered on 07/01/16 08:15; Admin Dose 81 MG; Start 06/27/16 at 21:00 Atorvastatin Calcium (Lipitor) 40 mg QHS PO Last administered on 06/30/16 20: 30; Admin Dose 40 MG; Start 06/27/16 at 21:00 Divalproex Sodium (Depakote Er) 250 mg QHS PO Last administered on 06/30/16at 22:04; Admin Dose 250 MG; Start 06/27/16 at 21:00 Divalproex Sodium (Depakote Er) 1,000 mg QHS PO Last administered on at 20:32; Admin Dose 1,000 MG; Start 06/27/16 at 21:00 Guaifenesin (Robitussin Liquid Cup) 100 mg TID PRN PO COUGH; Start 06/27/16 at 18:30 Mirtazapine (Remeron) 15 mg HS PO Last administered on 06/30/16 20:30; Admin Dose 15 MG; Start 06/27/16 at 21:00 Multivitamins Therapeutic (Theragran) 1 tab DAILY PO Last administered on 08:15; Admin Dose 1 TAB; Start 06/28/16 at 09:00 Oxybutynin Chloride (Ditropan Xl) 5 mg DAILY PO Last administered on 07/01/16 08:13; Admin Dose 5 MG; Start 06/28/16 at 09:00 Primidone (Mysoline) 100 mg TID PO Last administered on 07/01/16 12:54; Admin Dose 100 MG; Start 06/27/16 at 21:00 Propranolol HCl (Inderal) 20 mg BID PO Last administered on 07/01/16 08:14; Admin Dose 20 MG; Start 06/27/16 at 21:00 Ranitidine HCl (Zantac) 150 mg Q12 PO Last administered on 07/01/16 08:15; Admin Dose 150 MG; Start 06/27/16 at 21:00 Tiotropium [place] (Spiriva) 1 inh DAILY INH Last administered on 07/01/16 08: 13; Admin Dose 1 INH; Start 06/28/16 at 09:00 Topiramate (Topamax) 100 mg QHS PO Last administered on 06/30/16 20:33; Admin Dose 100 MG; Start 06/27/16 at 21:00 Salmeterol Xinafoate/ Fluticasone (Advair 100/50 Diskus) 1 inh BID INH Last administered on 07/01/16 08:12; Admin Dose 1 INH; Start 06/27/16 at 21:00 Cyanocobalamin (Vitamin B12) 250 mcg DAILY PO Last administered on 07/01/16 08: 15; Admin Dose 250 MCG; Start 06/28/16 at 09:00 Docusate Sodium (Colace) 20 mg HS PO Last administered on 06/30/16at 20:31; Admin Dose 20 MG; Start 06/29/16 at 21:00 Lorazepam (Ativan) 0.5 mg Q12H PRN IV ANXIETY; Start 06/28/16 at 21:00 Enoxaparin Sodium (Lovenox) 40 mg DAILY SC Last administered on 07/01/16 08:17 ; Admin Dose 40 MG; Start 06/29/16 at 09:00 Petrolatum (Vaseline) 1 ea BID PRN TOP DRY MOUTH; Start 06/28/16 at 17:00 Acetaminophen/ Hydrocodone Bitart ([place] (5/325)) 1 tab Q4H PRN PO PAIN Last administered on 07/01/16 17:00; Admin Dose 1 TAB; Start 06/29/16 at 13:00 Senna/Docusate Sodium (Senokot-S) 2 tab HS PO Last administered on 06/30/16at 20:33; Admin Dose 2 TAB; Start 06/29/16 at 21:00 Lisinopril (Zestril) 5 mg BID PO Last administered on 07/01/16 08:16; Admin Dose 5 MG; Start 06/29/16 at 21:00 Lidocaine (Lidoderm) 2 patch DAILY TD Last administered on 07/01/16 08:12; Admin Dose 2 PATCH; Start 06/30/16 at 12:30 Gabapentin (Neurontin) 400 mg QHS PO ; Start 07/01/16 at 21:00 Clonidine (Catapres) 0.1 mg Q4H PRN PO ELEVATED BLOOD PRESSURE; Start 07/01/16 at 12:00 Dominick Waters DO Jul 01, 2016 17:56
[2016-07-01] MEDS: ATORVASTATIN 40 MG TAB PO SCH (21:23)
[2016-07-01] MEDS: DOCUSATE SODIUM 100 MG CAP PO SCH (21:23)
[2016-07-01] MEDS: DIVALPROEX (ER) 500 MG TAB PO SCH (21:23)
[2016-07-01] MEDS: DIVALPROEX (ER) 250 MG TAB PO SCH (21:23)
[2016-07-01] MEDS: GABAPENTIN 400 MG CAP PO SCH (21:24)
[2016-07-01] MEDS: SENNA/DOCUSATE NA (8.6MG/50MG) TAB PO SCH (21:24)
[2016-07-01] MEDS: MIRTAZAPINE 15 MG TAB PO SCH (21:25)
[2016-07-01] MEDS: TOPIRAMATE 100 MG TAB PO SCH (21:25)
[2016-07-02] VITALS: BP 130/66; RESP 16
[2016-07-02 00:24] VITALS: PULSE 72
[2016-07-02] MEDS: HYDROCODONE/APAP (5/325) TAB PO PRN (02:28)
[2016-07-02 03:00] VITALS: BP 135/79; RESP 20
[2016-07-02 04:06] VITALS: BP 135/79; PULSE 70; RESP 20
[2016-07-02 07:40] VITALS: BP 118/74; RESP 18
[2016-07-02] MEDS: MULTIVITAMINS THERAPEUTIC TAB PO SCH (09:08)
[2016-07-02] MEDS: RANITIDINE 150 MG TAB PO SCH ×2 (09:08→21:38)
[2016-07-02] MEDS: ASPIRIN (EC) 81 MG TAB PO SCH (09:08)
[2016-07-02] MEDS: CYANOCOBALAMIN 500 MCG TAB PO SCH (09:08)
[2016-07-02] MEDS: OXYBUTYNIN (XL) 5 MG TAB PO SCH (09:08)
[2016-07-02] MEDS: PRIMIDONE 50 MG TAB PO SCH ×3 (09:09→21:37)
[2016-07-02] MEDS: LISINOPRIL 5 MG TAB PO SCH ×2 (09:09→21:40)
[2016-07-02] MEDS: ENOXAPARIN 40 MG/0.4 ML SYG SC SCH (09:10)
[2016-07-02] MEDS: LIDOCAINE 5% PATCH TD SCH (09:22)
[2016-07-02] MEDS: SALMETEROL/FLUTICASONE 100/50 INHA INH SCH ×2 (10:48→22:25)
[2016-07-02] MEDS: TIOTROPIUM 18 MCG CAPSULE INHA DEV INH SCH (10:48)
[2016-07-02] MEDS: PROPRANOLOL 20 MG TAB PO SCH ×2 (12:56→21:40)
[2016-07-02] MEDS: morphine 2 MG INJ IV PRN (17:12)
[2016-07-02 20:27] VITALS: BP 135/76; RESP 18
[2016-07-02] MEDS: DOCUSATE SODIUM 100 MG CAP PO SCH ×2 (21:00→22:25)
[2016-07-02] MEDS: DIVALPROEX (ER) 250 MG TAB PO SCH (21:37)
[2016-07-02] MEDS: ATORVASTATIN 40 MG TAB PO SCH (21:37)
[2016-07-02] MEDS: DIVALPROEX (ER) 500 MG TAB PO SCH (21:37)
[2016-07-02] MEDS: SENNA/DOCUSATE NA (8.6MG/50MG) TAB PO SCH (21:38)
[2016-07-02] MEDS: MIRTAZAPINE 15 MG TAB PO SCH (21:38)
[2016-07-02] MEDS: GABAPENTIN 400 MG CAP PO SCH (21:38)
[2016-07-02] MEDS: TOPIRAMATE 100 MG TAB PO SCH (22:25)
--- NOTE | 2016-07-02 23:16 | PN ---
Date/Time of Note Date/Time of Note DATE: 07/02/16 TIME: 23:16 Assessment/Plan VTE Prophylaxis VTE Prophylaxis Intervention: SCD's Lines/Catheters IV Catheter Type (from Nrsg): Saline Lock Urinary Cath still in place: No Assessment/Plan Assessment/Plan 1) Mechanical Fall; stable; Cont pt/ot. DC to snf. 2) Ac? T1 fracture; NS consult appreciated; may need tlso brace. no surgery needed. 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 12) T2/T3 fracture status DISP: pt wants Hospice, pending Eval Subjective 24 Hr Interval Summary Free Text/Dictation pt wants hospice Exam/Review of Systems Vital Signs Vitals Vital Signs Date Time Temp Pulse Resp B/P Pulse Ox O2 Delivery O2 Flow Rate FiO2 07/02/16 20:27 97.9 70 18 135/76 97 07/02/16 12:54 Nasal Cannula 2.0 Intake and Output 07/01/16 07/01/16 07/02/16 15:00 23:00 07:00 Intake Total 200 ml 200 ml Balance 200 ml 200 ml Exam Constitutional: alert, oriented Head: atraumatic, normocephalic Respiratory: clear to auscultation, normal air movement Cardiovascular: nl pulses, regular rate and rhythm Gastrointestinal: non-tender, soft Extremities: normal pulses Results Result Diagram: 06/29/16 0650 06/29/16 0650 Medications Medications Current Medications Ondansetron HCl (Zofran Inj) 4 mg Q6H PRN IV NAUSEA AND/OR VOMITING; Start at 18:30 Nitroglycerin (Nitroglycerin (Sl Tab) 0.4 Mg) 1 tab Q5M PRN SL CHEST PAIN; Start 06/27/16 at 18:30 Acetaminophen (Tylenol Tab) 650 mg Q6H PRN PO PAIN LEVEL 1-3 OR FEVER; Start 06/27/16 at 18:30 Morphine Sulfate (morphine) 2 mg Q4H PRN IV PAIN LEVEL 7-10 Last administered on 07/02/16 17:12; Admin Dose 2 MG; Start 06/27/16 at 18:30 Aspirin (Halfprin) 81 mg DAILY PO Last administered on 07/02/16 09:08; Admin Dose 81 MG; Start 06/27/16 at 21:00 Atorvastatin Calcium (Lipitor) 40 mg QHS PO Last administered on 07/02/16 21:37 ; Admin Dose 40 MG; Start 06/27/16 at 21:00 Divalproex Sodium (Depakote Er) 250 mg QHS PO Last administered on 07/02/16 21: 37; Admin Dose 250 MG; Start 06/27/16 at 21:00 Divalproex Sodium (Depakote Er) 1,000 mg QHS PO Last administered on 07/02/16 21:37; Admin Dose 1,000 MG; Start 06/27/16 at 21:00 Guaifenesin (Robitussin Liquid Cup) 100 mg TID PRN PO COUGH; Start 06/27/16 at 18:30 Mirtazapine (Remeron) 15 mg HS PO Last administered on 07/02/16 21:38; Admin Dose 15 MG; Start 06/27/16 at 21:00 Multivitamins Therapeutic (Theragran) 1 tab DAILY PO Last administered on 09:08; Admin Dose 1 TAB; Start 06/28/16 at 09:00 Oxybutynin Chloride (Ditropan Xl) 5 mg DAILY PO Last administered on 07/02/16 09:08; Admin Dose 5 MG; Start 06/28/16 at 09:00 Primidone (Mysoline) 100 mg TID PO Last administered on 07/02/16 21:37; Admin Dose 100 MG; Start 06/27/16 at 21:00 Propranolol HCl (Inderal) 20 mg BID PO Last administered on 07/02/16 21:40; Admin Dose 20 MG; Start 06/27/16 at 21:00 Ranitidine HCl (Zantac) 150 mg Q12 PO Last administered on 07/02/16 21:38; Admin Dose 150 MG; Start 06/27/16 at 21:00 Tiotropium [place] (Spiriva) 1 inh DAILY INH Last administered on 07/02/16 10: 48; Admin Dose 1 INH; Start 06/28/16 at 09:00 Topiramate (Topamax) 100 mg QHS PO Last administered on 07/02/16 22:25; Admin Dose 100 MG; Start 06/27/16 at 21:00 Salmeterol Xinafoate/ Fluticasone (Advair 100/50 Diskus) 1 inh BID INH Last administered on 07/02/16 22:25; Admin Dose 1 INH; Start 06/27/16 at 21:00 Cyanocobalamin (Vitamin B12) 250 mcg DAILY PO Last administered on 07/02/16 09: 08; Admin Dose 250 MCG; Start 06/28/16 at 09:00 Lorazepam (Ativan) 0.5 mg Q12H PRN IV ANXIETY; Start 06/28/16 at 21:00 Enoxaparin Sodium (Lovenox) 40 mg DAILY SC Last administered on 07/02/16 09:10 ; Admin Dose 40 MG; Start 06/29/16 at 09:00 Petrolatum (Vaseline) 1 ea BID PRN TOP DRY MOUTH; Start 06/28/16 at 17:00 Acetaminophen/ Hydrocodone Bitart ([place] (5/325)) 1 tab Q4H PRN PO PAIN Last administered on 07/02/16 02:28; Admin Dose 1 TAB; Start 06/29/16 at 13:00 Senna/Docusate Sodium (Senokot-S) 2 tab HS PO Last administered on 07/02/16 21: 38; Admin Dose 2 TAB; Start 06/29/16 at 21:00 Lisinopril (Zestril) 5 mg BID PO Last administered on 07/02/16 21:40; Admin Dose 5 MG; Start 06/29/16 at 21:00 Lidocaine (Lidoderm) 2 patch DAILY TD Last administered on 07/02/16 09:22; Admin Dose 2 PATCH; Start 06/30/16 at 12:30 Gabapentin (Neurontin) 400 mg QHS PO Last administered on 07/02/16 21:38; Admin Dose 400 MG; Start 07/01/16 at 21:00 Clonidine (Catapres) 0.1 mg Q4H PRN PO ELEVATED BLOOD PRESSURE; Start 07/01/16 at 12:00 Docusate Sodium (Colace) 100 mg BID PO Last administered on 07/02/16t 22:25; Admin Dose 100 MG; Start 07/02/16 at 22:00 YADIRA MALIK MD Jul 02, 2016 23:16
[2016-07-03 07:17] VITALS: BP 128/62; RESP 18
[2016-07-03] MEDS: morphine 2 MG INJ IV PRN ×4 (08:15→20:10)
[2016-07-03] MEDS: TIOTROPIUM 18 MCG CAPSULE INHA DEV INH SCH (08:50)
[2016-07-03] MEDS: SALMETEROL/FLUTICASONE 100/50 INHA INH SCH ×2 (08:50→20:57)
[2016-07-03] MEDS: DOCUSATE SODIUM 100 MG CAP PO SCH ×2 (08:51→21:02)
[2016-07-03] MEDS: OXYBUTYNIN (XL) 5 MG TAB PO SCH (08:51)
[2016-07-03] MEDS: PROPRANOLOL 20 MG TAB PO SCH ×2 (08:51→20:58)
[2016-07-03] MEDS: LISINOPRIL 5 MG TAB PO SCH ×2 (08:51→21:00)
[2016-07-03] MEDS: MULTIVITAMINS THERAPEUTIC TAB PO SCH (08:52)
[2016-07-03] MEDS: RANITIDINE 150 MG TAB PO SCH ×2 (08:52→20:58)
[2016-07-03] MEDS: CYANOCOBALAMIN 500 MCG TAB PO SCH (08:52)
[2016-07-03] MEDS: ASPIRIN (EC) 81 MG TAB PO SCH (08:52)
[2016-07-03] MEDS: PRIMIDONE 50 MG TAB PO SCH ×3 (08:56→20:58)
[2016-07-03] MEDS: LIDOCAINE 5% PATCH TD SCH (09:01)
[2016-07-03] MEDS: ENOXAPARIN 40 MG/0.4 ML SYG SC SCH (09:09)
--- NOTE | 2016-07-03 17:20 | PN ---
Date/Time of Note Date/Time of Note DATE: 07/03/16 TIME: 17:15 Assessment/Plan VTE Prophylaxis VTE Prophylaxis Intervention: LMWH Lines/Catheters IV [facility]from [facility] Urinary Cath still in place: No Assessment/Plan Assessment/Plan pt is a 76 yo female who was initially admitted with following diagnosis 1. Acute non-ST elevation myocardial infarction with atypical symptoms, as the patient denies chest pain or shortness of breath. 2. Multiple falls causing #3. 3. Multiple fractures with varying ages and severity, as well as compression height, in the lumbar and thoracic spine. 4. Severe osteoarthritis and diffuse osteopenia contributing to #3. 5. Chronic obstructive pulmonary disease without exacerbation. 6. Chronic seizures. 7. Dyslipidemia. 8. Chronic depression. 9. Hypokalemia. 10. Hypomagnesemia. 11. Dyslipidemia. 12. Small 3 cm mild midabdominal aortic aneurysm that was incidentally found on CT. 13. Constipation. PLAN pt wants to be in Hospice and have already been evaluated. Will await final outcome. in the meantime, will cont current mgmt Subjective 24 Hr Interval Summary Free Text/Dictation no acute issue. pt was evaluated by Hospice team Exam/Review of Systems Vital Signs Vitals Vital Signs Date Time Temp Pulse Resp B/P Pulse Ox O2 Delivery O2 Flow Rate FiO2 07/03/16 16:54 2.0 07/03/16 09:39 Nasal Cannula 07/03/16 07:17 98.1 63 18 128/62 99 Intake and Output 07/02/16 07/02/16 07/03/16 15:00 23:00 07:00 Intake Total 1170 ml 600 ml Balance 1170 ml 600 ml Exam GENERAL: sleepy, but fully arousable. appears weak HEENT: Head is normocephalic. There is no evidence of trauma. Equal and reactive pupils. Her mucous membranes were quite dry. NECK: Supple and nontender. BACK: Evaluation of her back does reveal multiple bruises and contusions at different levels of her spine. CHEST: Clear to auscultation with reduced air entry in the bases, as well as shallow breath sounds. CARDIOVASCULAR: S1 and S2, without added sounds or murmurs, regular rhythm. ABDOMEN: Obese, soft, nontender, with normoactive bowel sounds. EXTREMITIES: With trace nonpitting edema of both feet. Results Result Diagram: 06/29/16 0650 06/29/16 0650 Medications Medications Current Medications Ondansetron HCl (Zofran Inj) 4 mg Q6H PRN IV NAUSEA AND/OR VOMITING Last administered on 07/03/16 16:25; Admin Dose 4 MG; Start 06/27/16 at 18:30 Nitroglycerin (Nitroglycerin (Sl Tab) 0.4 Mg) 1 tab Q5M PRN SL CHEST PAIN; Start 06/27/16 at 18:30 Acetaminophen (Tylenol Tab) 650 mg Q6H PRN PO PAIN LEVEL 1-3 OR FEVER; Start 06/27/16 at 18:30 Morphine Sulfate (morphine) 2 mg Q4H PRN IV PAIN LEVEL 7-10 Last administered on 07/03/16 16:26; Admin Dose 2 MG; Start 06/27/16 at 18:30 Aspirin (Halfprin) 81 mg DAILY PO Last administered on 07/03/16 08:52; Admin Dose 81 MG; Start 06/27/16 at 21:00 Atorvastatin Calcium (Lipitor) 40 mg QHS PO Last administered on 07/02/16 21:37 ; Admin Dose 40 MG; Start 06/27/16 at 21:00 Divalproex Sodium (Depakote Er) 250 mg QHS PO Last administered on 07/02/16 21: 37; Admin Dose 250 MG; Start 06/27/16 at 21:00 Divalproex Sodium (Depakote Er) 1,000 mg QHS PO Last administered on 07/02/16 21:37; Admin Dose 1,000 MG; Start 06/27/16 at 21:00 Guaifenesin (Robitussin Liquid Cup) 100 mg TID PRN PO COUGH; Start 06/27/16 at 18:30 Mirtazapine (Remeron) 15 mg HS PO Last administered on 07/02/16 21:38; Admin Dose 15 MG; Start 06/27/16 at 21:00 Multivitamins Therapeutic (Theragran) 1 tab DAILY PO Last administered on 08:52; Admin Dose 1 TAB; Start 06/28/16 at 09:00 Oxybutynin Chloride (Ditropan Xl) 5 mg DAILY PO Last administered on 07/03/16 08:51; Admin Dose 5 MG; Start 06/28/16 at 09:00 Primidone (Mysoline) 100 mg TID PO Last administered on 07/03/16 12:31; Admin Dose 100 MG; Start 06/27/16 at 21:00 Propranolol HCl (Inderal) 20 mg BID PO Last administered on 07/03/16 08:51; Admin Dose 20 MG; Start 06/27/16 at 21:00 Ranitidine HCl (Zantac) 150 mg Q12 PO Last administered on 07/03/16 08:52; Admin Dose 150 MG; Start 06/27/16 at 21:00 Tiotropium [place] (Spiriva) 1 inh DAILY INH Last administered on 07/03/16 08: 50; Admin Dose 1 INH; Start 06/28/16 at 09:00 Topiramate (Topamax) 100 mg QHS PO Last administered on 07/02/16 22:25; Admin Dose 100 MG; Start 06/27/16 at 21:00 Salmeterol Xinafoate/ Fluticasone (Advair 100/50 Diskus) 1 inh BID INH Last administered on 07/03/16 08:50; Admin Dose 1 INH; Start 06/27/16 at 21:00 Cyanocobalamin (Vitamin B12) 250 mcg DAILY PO Last administered on 07/03/16 08: 52; Admin Dose 250 MCG; Start 06/28/16 at 09:00 Lorazepam (Ativan) 0.5 mg Q12H PRN IV ANXIETY; Start 06/28/16 at 21:00 Enoxaparin Sodium (Lovenox) 40 mg DAILY SC Last administered on 07/03/16 09:09 ; Admin Dose 40 MG; Start 06/29/16 at 09:00 Petrolatum (Vaseline) 1 ea BID PRN TOP DRY MOUTH; Start 06/28/16 at 17:00 Acetaminophen/ Hydrocodone Bitart ([place] (5/325)) 1 tab Q4H PRN PO PAIN Last administered on 07/02/16 02:28; Admin Dose 1 TAB; Start 06/29/16 at 13:00 Senna/Docusate Sodium (Senokot-S) 2 tab HS PO Last administered on 07/02/16 21: 38; Admin Dose 2 TAB; Start 06/29/16 at 21:00 Lisinopril (Zestril) 5 mg BID PO Last administered on 07/03/16 08:51; Admin Dose 5 MG; Start 06/29/16 at 21:00 Lidocaine (Lidoderm) 2 patch DAILY TD Last administered on 07/03/16 09:01; Admin Dose 2 PATCH; Start 06/30/16 at 12:30 Gabapentin (Neurontin) 400 mg QHS PO Last administered on 07/02/16 21:38; Admin Dose 400 MG; Start 07/01/16 at 21:00 Clonidine (Catapres) 0.1 mg Q4H PRN PO ELEVATED BLOOD PRESSURE; Start 07/01/16 at 12:00 Docusate Sodium (Colace) 100 mg BID PO Last administered on 07/03/16 08:51; Admin Dose 100 MG; Start 07/02/16 at 22:00 YADIRA MALIK MD Jul 03, 2016 17:19
[2016-07-03 20:00] VITALS: BP 114/60; RESP 16
[2016-07-03] MEDS: SENNA/DOCUSATE NA (8.6MG/50MG) TAB PO SCH (20:58)
[2016-07-03] MEDS: ATORVASTATIN 40 MG TAB PO SCH (20:58)
[2016-07-03] MEDS: DIVALPROEX (ER) 500 MG TAB PO SCH (20:58)
[2016-07-03] MEDS: GABAPENTIN 400 MG CAP PO SCH (20:58)
[2016-07-03] MEDS: DIVALPROEX (ER) 250 MG TAB PO SCH (20:59)
[2016-07-03] MEDS: MIRTAZAPINE 15 MG TAB PO SCH (20:59)
[2016-07-03] MEDS: TOPIRAMATE 100 MG TAB PO SCH (20:59)
[2016-07-03] MEDS: HYDROCODONE/APAP (5/325) TAB PO PRN (22:58)
[2016-07-04] MEDS: morphine 2 MG INJ IV PRN ×4 (02:19→15:28)
[2016-07-04 07:31] VITALS: BP 122/59; RESP 18
[2016-07-04] MEDS: OXYBUTYNIN (XL) 5 MG TAB PO SCH (08:59)
[2016-07-04] MEDS: TIOTROPIUM 18 MCG CAPSULE INHA DEV INH SCH (08:59)
[2016-07-04] MEDS: SALMETEROL/FLUTICASONE 100/50 INHA INH SCH ×2 (08:59→21:01)
[2016-07-04] MEDS: DOCUSATE SODIUM 100 MG CAP PO SCH ×2 (08:59→21:02)
[2016-07-04] MEDS: MULTIVITAMINS THERAPEUTIC TAB PO SCH (09:00)
[2016-07-04] MEDS: ASPIRIN (EC) 81 MG TAB PO SCH (09:00)
[2016-07-04] MEDS: CYANOCOBALAMIN 500 MCG TAB PO SCH (09:00)
[2016-07-04] MEDS: RANITIDINE 150 MG TAB PO SCH ×2 (09:00→21:05)
[2016-07-04] MEDS: PRIMIDONE 50 MG TAB PO SCH ×3 (09:00→21:04)
[2016-07-04] MEDS: PROPRANOLOL 20 MG TAB PO SCH ×2 (09:01→21:00)
[2016-07-04] MEDS: LISINOPRIL 5 MG TAB PO SCH ×2 (09:02→21:00)
[2016-07-04] MEDS: LIDOCAINE 5% PATCH TD SCH (09:03)
[2016-07-04] MEDS: ENOXAPARIN 40 MG/0.4 ML SYG SC SCH (09:03)
--- NOTE | 2016-07-04 19:21 | PN ---
Date/Time of Note Date/Time of Note DATE: 07/04/16 TIME: 19:20 Assessment/Plan VTE Prophylaxis VTE Prophylaxis Intervention: SCD's Lines/Catheters IV Catheter Type (from Nrs): Saline Lock Urinary Cath still in place: No Assessment/Plan Assessment/Plan pt is a 76 yo female who was initially admitted with following diagnosis 1. Acute non-ST elevation myocardial infarction with atypical symptoms, as the patient denies chest pain or shortness of breath. 2. Multiple falls causing #3. 3. Multiple fractures with varying ages and severity, as well as compression height, in the lumbar and thoracic spine. 4. Severe osteoarthritis and diffuse osteopenia contributing to #3. 5. Chronic obstructive pulmonary disease without exacerbation. 6. Chronic seizures. 7. Dyslipidemia. 8. Chronic depression. 9. Hypokalemia. 10. Hypomagnesemia. 11. Dyslipidemia. 12. Small 3 cm mild midabdominal aortic aneurysm that was incidentally found on CT. 13. Constipation. PLAN pt wants to be in Hospice and have already been evaluated. Will await final outcome. in the meantime, will cont current mgmt Exam/Review of Systems Vital Signs Vitals Vital Signs Date Time Temp Pulse Resp B/P Pulse Ox O2 Delivery O2 Flow Rate FiO2 07/04/16 14:20 2.0 07/04/16 10:56 Nasal Cannula 07/04/16 09:35 84 20 95 07/04/16 07:31 97.6 122/59 Intake and Output 07/03/16 07/03/16 07/04/16 15:00 23:00 07:00 Intake Total 890 ml 360 ml Balance 890 ml 360 ml Medications Medications Current Medications Ondansetron HCl (Zofran Inj) 4 mg Q6H PRN IV NAUSEA AND/OR VOMITING Last administered on 07/03/16 16:25; Admin Dose 4 MG; Start 06/27/16 at 18:30 Nitroglycerin (Nitroglycerin (Sl Tab) 0.4 Mg) 1 tab Q5M PRN SL CHEST PAIN; Start 06/27/16 at 18:30 Acetaminophen (Tylenol Tab) 650 mg Q6H PRN PO PAIN LEVEL 1-3 OR FEVER; Start 06/27/16 at 18:30 Morphine Sulfate (morphine) 2 mg Q4H PRN IV PAIN LEVEL 7-10 Last administered on 07/04/16 15:28; Admin Dose 2 MG; Start 06/27/16 at 18:30 Aspirin (Halfprin) 81 mg DAILY PO Last administered on 07/04/16 09:00; Admin Dose 81 MG; Start 06/27/16 at 21:00 Atorvastatin Calcium (Lipitor) 40 mg QHS PO Last administered on 07/03/16 20:58 ; Admin Dose 40 MG; Start 06/27/16 at 21:00 Divalproex Sodium (Depakote Er) 250 mg QHS PO Last administered on 07/03/16 20: 59; Admin Dose 250 MG; Start 06/27/16 at 21:00 Divalproex Sodium (Depakote Er) 1,000 mg QHS PO Last administered on 07/03/16 20:58; Admin Dose 1,000 MG; Start 06/27/16 at 21:00 Guaifenesin (Robitussin Liquid Cup) 100 mg TID PRN PO COUGH; Start 06/27/16 at 18:30 Mirtazapine (Remeron) 15 mg HS PO Last administered on 07/03/16 20:59; Admin Dose 15 MG; Start 06/27/16 at 21:00 Multivitamins Therapeutic (Theragran) 1 tab DAILY PO Last administered on 09:00; Admin Dose 1 TAB; Start 06/28/16 at 09:00 Oxybutynin Chloride (Ditropan Xl) 5 mg DAILY PO Last administered on 07/04/16 08:59; Admin Dose 5 MG; Start 06/28/16 at 09:00 Primidone (Mysoline) 100 mg TID PO Last administered on 07/04/16 13:03; Admin Dose 100 MG; Start 06/27/16 at 21:00 Propranolol HCl (Inderal) 20 mg BID PO Last administered on 07/04/16 09:01; Admin Dose 20 MG; Start 06/27/16 at 21:00 Ranitidine HCl (Zantac) 150 mg Q12 PO Last administered on 07/04/16 09:00; Admin Dose 150 MG; Start 06/27/16 at 21:00 Tiotropium [place] (Spiriva) 1 inh DAILY INH Last administered on 07/04/16 08: 59; Admin Dose 1 INH; Start 12/29/16 at 09:00 Topiramate (Topamax) 100 mg QHS PO Last administered on 07/03/16 20:59; Admin Dose 100 MG; Start 06/27/16 at 21:00 Salmeterol Xinafoate/ Fluticasone (Advair 100/50 Diskus) 1 inh BID INH Last administered on 07/04/16 08:59; Admin Dose 1 INH; Start 06/27/16 at 21:00 Cyanocobalamin (Vitamin B12) 250 mcg DAILY PO Last administered on 07/04/16 09: 00; Admin Dose 250 MCG; Start 06/28/16 at 09:00 Lorazepam (Ativan) 0.5 mg Q12H PRN IV ANXIETY; Start 06/28/16 at 21:00 Enoxaparin Sodium (Lovenox) 40 mg DAILY SC Last administered on 07/04/16 09:03 ; Admin Dose 40 MG; Start 06/29/16 at 09:00 Petrolatum (Vaseline) 1 ea BID PRN TOP DRY MOUTH; Start 06/28/16 at 17:00 Acetaminophen/ Hydrocodone Bitart ([place] (5/325)) 1 tab Q4H PRN PO PAIN Last administered on 07/03/16 22:58; Admin Dose 1 TAB; Start 06/29/16 at 13:00 Senna/Docusate Sodium (Senokot-S) 2 tab HS PO Last administered on 07/03/16 20: 58; Admin Dose 2 TAB; Start 06/29/16 at 21:00 Lisinopril (Zestril) 5 mg BID PO Last administered on 07/04/16 09:02; Admin Dose 5 MG; Start 06/29/16 at 21:00 Lidocaine (Lidoderm) 2 patch DAILY TD Last administered on 07/04/16 09:03; Admin Dose 2 PATCH; Start 06/30/16 at 12:30 Gabapentin (Neurontin) 400 mg QHS PO Last administered on 07/03/16 20:58; Admin Dose 400 MG; Start 07/01/16 at 21:00 Clonidine (Catapres) 0.1 mg Q4H PRN PO ELEVATED BLOOD PRESSURE; Start 07/01/16 at 12:00 Docusate Sodium (Colace) 100 mg BID PO Last administered on 07/04/16 08:59; Admin Dose 100 MG; Start 07/02/16 at 22:00 YADIRA MALIK MD Jul 04, 2016 19:20
[2016-07-04 19:38] VITALS: BP 105/61; RESP 16
[2016-07-04] MEDS: HYDROCODONE/APAP (5/325) TAB PO PRN (19:48)
[2016-07-04] MEDS: DIVALPROEX (ER) 500 MG TAB PO SCH (21:02)
[2016-07-04] MEDS: DIVALPROEX (ER) 250 MG TAB PO SCH (21:02)
[2016-07-04] MEDS: ATORVASTATIN 40 MG TAB PO SCH (21:04)
[2016-07-04] MEDS: TOPIRAMATE 100 MG TAB PO SCH (21:05)
[2016-07-04] MEDS: MIRTAZAPINE 15 MG TAB PO SCH (21:05)
[2016-07-04] MEDS: GABAPENTIN 400 MG CAP PO SCH (21:05)
[2016-07-04] MEDS: SENNA/DOCUSATE NA (8.6MG/50MG) TAB PO SCH (21:05)
[2016-07-05] MEDS: HYDROCODONE/APAP (5/325) TAB PO PRN ×4 (06:26→19:26)
[2016-07-05 07:50] VITALS: BP 118/68; RESP 20
[2016-07-05] MEDS: ENOXAPARIN 40 MG/0.4 ML SYG SC SCH (10:24)
[2016-07-05] MEDS: TIOTROPIUM 18 MCG CAPSULE INHA DEV INH SCH (10:25)
[2016-07-05] MEDS: PROPRANOLOL 20 MG TAB PO SCH (10:27)
[2016-07-05] MEDS: DOCUSATE SODIUM 100 MG CAP PO SCH (10:27)
[2016-07-05] MEDS: CYANOCOBALAMIN 500 MCG TAB PO SCH (10:28)
[2016-07-05] MEDS: LISINOPRIL 5 MG TAB PO SCH (10:28)
[2016-07-05] MEDS: MULTIVITAMINS THERAPEUTIC TAB PO SCH (10:28)
[2016-07-05] MEDS: ASPIRIN (EC) 81 MG TAB PO SCH (10:28)
[2016-07-05] MEDS: OXYBUTYNIN (XL) 5 MG TAB PO SCH (10:28)
[2016-07-05] MEDS: PRIMIDONE 50 MG TAB PO SCH ×2 (10:29→13:03)
[2016-07-05] MEDS: LIDOCAINE 5% PATCH TD SCH (10:29)
[2016-07-05] MEDS: RANITIDINE 150 MG TAB PO SCH (10:29)
[2016-07-05] MEDS: SALMETEROL/FLUTICASONE 100/50 INHA INH SCH (13:03)
== END 2016-07-05 19:42 | disposition hospice, inpatient (51) | DRG 542 ==
LOC: E/R 19:47 → MS4 06-27 00:50 → PP2 07-02 03:00
PROVIDERS: ADMIT Family Medicine; ATTEND Family Medicine
DX: M80.88XA Other osteoporosis with current pathological fracture, vertebra(e), initial encounter for fracture (principal); I21.4 Non-ST elevation (NSTEMI) myocardial infarction; I69.954 Hemiplegia and hemiparesis following unspecified cerebrovascular disease affecting left non-dominant side; J44.9 Chronic obstructive pulmonary disease, unspecified; I10 Essential (primary) hypertension; M47.9 Spondylosis, unspecified; Z87.891 Personal history of nicotine dependence; I16.0 Hypertensive urgency; F32.9 Major depressive disorder, single episode, unspecified; E78.5 Hyperlipidemia, unspecified; Z96.643 Presence of artificial hip joint, bilateral; E87.6 Hypokalemia; E83.42 Hypomagnesemia; W19.XXXA Unspecified fall, initial encounter; I34.0 Nonrheumatic mitral (valve) insufficiency; G40.909 Epilepsy, unspecified, not intractable, without status epilepticus; I71.4 Abdominal aortic aneurysm, without rupture
CPT/HCPCS: 36415; 70450; 71010; 72128; 72131; 75635; 80048; 80053; 80061; 80164; 82550; 82553; 83036; 83690; 83735; 84100; 84443; 84484; 85025; 85610; 85730; 87081; 93005; 93306; 94640; 94664; 96374; 96375; 96376; 97001; 97116; 97530; J1170; J1644; J1650; J2270; J2405; J3475; J7030; J7040; Q9967